=== PATIENT | male | born 1935 | race Caucasian/White ===

== ENCOUNTER 2017-02-24 13:35 | Inpatient (IN) | payer OTHER ==
--- NOTE | 2017-02-24 15:08 | C.PDOC ---
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 CROWDER FOR MULTIPLE FALLS, WEIGHT LOSS, AND ARRYTHMIA. PATIENT C/O "TOO MUCH PAIN" AND ADMITS TO FALLING DOWN TODAY. OTHERWISE, DENIES ANY OTHER COMPLAINTS. Time Seen by Provider: 02/24/17 14:48 Chief Complaint (Nursing): Weakness/Neurological Deficit History Per: Patient History/Exam Limitations: no limitations Onset/Duration Of Symptoms: Days Current Symptoms Are (Timing): Still Present Reports Recently: Treated By A Physician Recent travel outside of the [place]: No Past Medical History Reviewed: Historical Data, Nursing Documentation, Vital Signs Vital Signs: Last Vital Signs Temp 97.4 F L 02/24/17 13:57 Pulse 74 02/24/17 13:57 Resp 20 02/24/17 13:57 BP 94/62 L 02/24/17 13:57 Pulse Ox 99 02/24/17 15:46 - Medical History PMH: Anxiety, Arthritis, Asthma, Depression, HTN, Hypercholesterolemia, Hyperlipidemia Surgical History: Cholecystectomy Family History: States: Unknown Family Hx - Social History Hx Tobacco Use: No Hx Alcohol Use: No Hx Substance Use: No - Immunization History Hx Tetanus Toxoid Vaccination: No Hx Influenza Vaccination: Yes Hx Pneumococcal Vaccination: Yes Review Of Systems Except As Marked, All Systems Reviewed And Found Negative. Constitutional: Negative for: Fever, Chills Cardiovascular: Negative for: Chest Pain Respiratory: Negative for: Cough, Shortness of Breath, Other Gastrointestinal: Positive for: Abdominal Pain. Negative for: Vomiting Skin: Negative for: Rash Physical Exam - Physical Exam Appears: Non-toxic, No Acute Distress Skin: Warm, Dry Head: Atraumatic, Normacephalic Eye(s): bilateral: Normal Inspection, EOMI Oral Mucosa: Moist Neck: Normal ROM, Supple Chest: Symmetrical, No Deformity, Tenderness (INFERIOR, LATERAL CHEST WALL TENDERNESS), No Ecchymosis Cardiovascular: Rhythm Regular Respiratory: Normal Breath Sounds, No Accessory Muscle Use, No Rales, No Rhonchi , No Wheezing Gastrointestinal/Abdominal: Soft, No Tenderness, No Guarding, No Rebound, Other (ATRAUMATIC) Back: Normal Inspection, No Vertebral Tenderness, Other (ATRAUMATIC) Extremity: Normal ROM, Capillary Refill (< 2 SEC.) Neurological/Psych: Oriented x3, Normal Speech, Normal Cognition ED Course And Treatment - Laboratory Results Result Diagrams: 02/24/17 15:19 02/24/17 15:19 O2 Sat by Pulse Oximetry: 99 (RA) Pulse Ox Interpretation: Normal - Radiology CXR: Interpreted by Me CXR Interpretation: Yes: No Acute Disease Progress - Re-Evaluation Re-evaluation Note: 02/24/17 15:19 EKG, CXR, BLOODWORK, TORADOL Disposition Counseled Patient/Family Regarding: Studies Performed, Diagnosis - Disposition Disposition: HOSPITALIZED Disposition Time: 15:45 Condition: STABLE Instructions: Weakness (ED) Forms: [employer] (Slovak) - POA Present On Arrival: Falls Or Trauma - Clinical Impression Clinical Impression: Renal insufficiency, Dehydration, Hyponatremia, Weakness generalized - Scribe Statement The provider has reviewed the documentation as recorded by the Scribe sm All medical record entries made by the Scribe were at my direction and personally dictated by me. I have reviewed the chart and agree that the record accurately reflects my personal performance of the history, physical exam, medical decision making, and the department course for this patient. I have also personally directed, reviewed, and agree with the discharge instructions and disposition. Decision To Admit - Pt Status Changed To: Hospital Disposition Of: Inpatient - Admit Certification Admit to Inpatient:: After my assessment, the patient will require hospitalization for at least two midnights. This is because of the severity of symptoms shown, intensity of services needed, and/or the medical risk in this patient being treated as an outpatient. - InPatient: Physician Admission Certification: I certify that this patient requires 2 or more midnights of care for the following reason:: SEENOTE - . Bed Request Type: Regular Admitting Physician: Leon Crowder Patient Diagnosis: Renal insufficiency, Dehydration, Hyponatremia, Weakness generalized
[2017-02-24 15:22] LABS: BASO % 0.4 % (0.0-2.0); EOS # 0.1 K/uL (0.0-0.7); HEMATOCRIT 28.6 % (35.0-51.0); LYMPH % 18.2 % (20.0-40.0); MEAN CELL VOLUME 83.8 fL (80.0-94.0); MEAN CORPUSCULAR HEMOGLOBIN 27.7 pg (27.0-31.0); MONO # 0.6 K/uL (0.0-0.8); MONO % 11.3 % (0.0-10.0); NRBC % 0.1 % (0.0-2.0); RED CELL DISTRIBUTION WIDTH 15.8 % (11.5-14.5); WHITE BLOOD COUNT 5.5 K/uL (4.8-10.8)
[2017-02-24 15:36] LABS: CALCIUM 8.5 mg/dl (8.6-10.4)
--- NOTE | 2017-02-24 16:00 | RAD ---
PROCEDURE: CHEST RADIOGRAPH, 1 VIEW HISTORY: FALLS, WEAKNESS COMPARISON: 10/07/2014 FINDINGS: LUNGS: Clear. PLEURA: No pneumothorax or pleural fluid seen. CARDIOVASCULAR: Normal. OSSEOUS STRUCTURES: No significant abnormalities. VISUALIZED UPPER ABDOMEN: Normal. OTHER FINDINGS: None. IMPRESSION: No active disease.
[2017-02-24 16:45] LABS: RBC URINE < 1 /hpf (0-3); URINE BILIRUBIN NEGATIVE (NEGATIVE); URINE BLOOD NEGATIVE (NEGATIVE); URINE COLOR Yellow (YELLOW); URINE GLUCOSE (UA) NORMAL (Normal); URINE KETONE NEGATIVE (NEGATIVE); URINE LEUKOCYTE ESTERASE NEG Leu/uL (Negative); URINE PROTEIN NEGATIVE (NEGATIVE); URINE UROBILINOGEN NORMAL mg/dL (0.2-1.0); WBC URINE 1 /hpf (0-5)
[2017-02-25] MEDS ORDERED: Albuterol HFA 90 mcg/actuation (8 g) IH PRN (00:21)
[2017-02-25] MEDS ORDERED: Sodium Chloride 0.9% 1,000 ML IV SCH (00:45)
[2017-02-25] MEDS: Sodium Chloride 0.9% 1,000 ML IV SCH (01:41)
[2017-02-25 07:59] LABS: HEMATOCRIT 26.4 % (35.0-51.0); MEAN CELL VOLUME 83.8 fL (80.0-94.0); MEAN CORPUSCULAR HEMOGLOBIN 27.8 pg (27.0-31.0); MEAN CORPUSCULAR HGB CONC 33.2 g/dL (33.0-37.0); MEAN PLATELET VOLUME 6.9 fL (7.2-11.7); RED CELL DISTRIBUTION WIDTH 15.3 % (11.5-14.5); WHITE BLOOD COUNT 5.1 K/uL (4.8-10.8)
[2017-02-25 08:00] LABS: CHLORIDE 100 mmol/L (98-107)
[2017-02-25 08:01] LABS: SODIUM 129 mmol/L (132-148)
[2017-02-25 08:03] LABS: ALB/GLOB RATIO 0.9 (1.0-2.1); BILIRUBIN,TOTAL 0.5 mg/dL (0.2-1.3); CARBON DIOXIDE 20 mmol/L (22-30); CHOLESTEROL 120 mg/dL (0-199); GFR AFRICAN-AMERICAN > 60; TOTAL PROTEIN 6.1 g/dL (6.3-8.3)
[2017-02-25 08:04] LABS: ALKALINE PHOSPHATASE 69 U/L (38-126); ALT/SGPT 26 U/L (21-72); AST/SGOT 16 U/L (17-59); BLOOD UREA NITROGEN 45 mg/dL (9-20); CALCIUM 8.1 mg/dl (8.6-10.4); GLUCOSE,RANDOM 83 mg/dL (75-110)
--- NOTE | 2017-02-25 09:46 | CT ---
PROCEDURE: CT HEAD WITHOUT CONTRAST. HISTORY: Frequent falls COMPARISON: None available. TECHNIQUE: Axial computed tomography images were obtained through the head/brain without intravenous contrast. Radiation dose: Total exam DLP = 915.9 mGy-cm. This CT exam was performed using one or more of the following dose reduction techniques: Automated exposure control, adjustment of the mA and/or kV according to patient size, and/or use of iterative reconstruction technique. FINDINGS: HEMORRHAGE: No intracranial hemorrhage. BRAIN: No mass effect or edema. There is grdp-ec-rmntmnia atrophy. Mild white matter changes are also noted suggestive but nonspecific for chronic microvascular ischemic disease. VENTRICLES: Unremarkable. No hydrocephalus. CALVARIUM: Unremarkable. PARANASAL SINUSES: Unremarkable as visualized. No significant inflammatory changes. MASTOID AIR CELLS: Unremarkable as visualized. No inflammatory changes. OTHER FINDINGS: None. IMPRESSION: No evidence of acute intracranial hemorrhage intracranial collection mass effect or midline shift. Yqht-hd-[id number] atrophy and mild chronic microvascular ischemic disease.
[2017-02-25] MEDS: Naproxen 275 mg Tab PO SCH ×2 (10:59→18:26)
[2017-02-25] MEDS: Pantoprazole 40 mg EC Tab PO SCH (10:59)
[2017-02-25] MEDS: Rosuvastatin Calcium 2.5 mg Tab PO SCH (22:55)
--- NOTE | 2017-02-25 23:04 | CON ---
REASON FOR CONSULTATION: Recurrent falls. HISTORY OF PRESENT ILLNESS: The patient is an 81-year-old male who was brought in because of multiple falls as well as weight loss. The patient was recently hospitalized at [facility] but does not recall what was exactly done in terms of procedures. The patient denies any history of heart attack. SOCIAL HISTORY: The patient lives at home and he is being taken care of by his son. MEDICATIONS: Naproxen 275 mg twice a day, Bystolic 5 mg once a day, Carafate 1 g t.i.d., Desyrel 50 mg at bedtime, Crestor 2.5 mg once a day, aspirin 81 mg once a day, Protonix 40 mg p.o. once day, normal saline 80 mL an hour, Zestril 5 mg once a day, Zoloft 25 mg once a day. REVIEW OF SYSTEMS: No reported intracardiac arrhythmia on the monitor. No reported seizures. No reported fever or chills. PHYSICAL EXAMINATION GENERAL: The patient is an elderly male who does not appear to be in any acute distress. VITAL SIGNS: Blood pressure 109/68, heart rate 84, temperature 98, respirations 20. HEENT: Normocephalic. Capac conjunctivae. CHEST: Poor inspiratory effort. HEART: S1 and S2 regular. ABDOMEN: Soft. EXTREMITIES: No edema. LABORATORY DATA: SMA-7; sodium 129, potassium 4, chloride 100, CO2 of 20, glucose 83, BUN 25, creatinine 1.3, BUN yesterday was 68. Hemoglobin and hematocrit 8.8 and 26.4. White count and platelet count are within normal limit. EKG revealed sinus tachycardia with a rate of 104, LVH with repolarization changes. Echocardiographic study performed in 2013, some 3 years ago, reported as significantly limited, mitral annular calcification with calcified leaflets. Moderate to severe aortic stenosis. Right ventricular systolic pressure estimated at 50 mmHg to [address] scan without contrast; no evidence of acute intracranial hemorrhage. Mild to moderate atrophy and mild microvascular ischemic changes. ASSESSMENT: 1. Recurrent falls. 2. Dehydration and prerenal azotemia. 3. Aortic stenosis. 4. Moderate pulmonary hypertension. 5. Systemic hypertension. 6. Hyponatremia. RECOMMENDATIONS: Continue current Bystolic at 5 mg once a day, Crestor 2.5 mg once a day, aspirin 81 mg once a day, normal saline at 80 mL an hour, Zestril 5 mg once a day. Obtain again echocardiographic study and obtain medical records from the recent admission and [facility], Po Landon MD
[2017-02-25] MEDS ORDERED: Aluminum Hydroxide/Magnesium Hydroxide Susp (30 mL) PO ONE (23:06)
[2017-02-26] MEDS: Sodium Chloride 0.9% 1,000 ML IV SCH (04:00)
[2017-02-26 08:00] VITALS: RESP 20
[2017-02-26 08:13] LABS: HEMATOCRIT 26.8 % (35.0-51.0); MEAN CELL VOLUME 83.3 fL (80.0-94.0); MEAN CORPUSCULAR HEMOGLOBIN 28.5 pg (27.0-31.0); MEAN CORPUSCULAR HGB CONC 34.2 g/dL (33.0-37.0); MEAN PLATELET VOLUME 6.6 fL (7.2-11.7); RED CELL DISTRIBUTION WIDTH 15.2 % (11.5-14.5); WHITE BLOOD COUNT 4.8 K/uL (4.8-10.8)
[2017-02-26 08:34] LABS: CHLORIDE 102 mmol/L (98-107); POTASSIUM 4.3 mmol/L (3.6-5.2); SODIUM 131 mmol/L (132-148)
[2017-02-26 08:37] LABS: BLOOD UREA NITROGEN 30 mg/dL (9-20); CARBON DIOXIDE 22 mmol/L (22-30); GFR AFRICAN-AMERICAN > 60
[2017-02-26 08:38] LABS: CALCIUM 8.4 mg/dl (8.6-10.4); GLUCOSE,RANDOM 79 mg/dL (75-110)
--- NOTE | 2017-02-26 09:17 | HP ---
HISTORY OF PRESENT ILLNESS: This patient is an 81 years old male with history of CAD, hypertension, arthritis, neuropathy, asthma, depression, and hyperlipidemia. The patient was sent to the emergency room because, as per his son, the patient has history of multiple falls and was very weak, and also the patient was complaining of dizziness, so I have advised the son to bring the patient to the emergency room for evaluation and the patient was admitted to the emergency room. ALLERGIES: THE PATIENT HAS NO KNOWN ALLERGY. PAST MEDICAL HISTORY: As above mentioned, history of arthritis, asthma, depression, hypertension, hyperlipidemia, and also CAD. SOCIAL HISTORY: The patient lives alone. FAMILY HISTORY: No inherited disease. REVIEW OF SYSTEMS: RESPIRATORY: The patient has been having some shortness of breath on exertion. CARDIOVASCULAR: Positive for palpitation. GASTROINTESTINAL: The patient is complaining of anorexia. GENITOURINARY: Nocturia. NEUROLOGIC: The patient is complaining of dizziness. PSYCHIATRIC: The patient is complaining of feeling depressed at times. PHYSICAL EXAMINATION: GENERAL: The patient is alert and awake, but answers to simple question. VITAL SIGNS: Blood pressure on admission 122/61, pulse 66, respirations 18, and temperature 97.1. HEENT: Head is normocephalic. Eyes is somewhat sinking. NECK: Supple. LUNGS: Clear. HEART: Regular rate and rhythm. Positive murmur and some extrasystole. ABDOMEN: Soft and nontender. No palpable mass. EXTREMITIES: No edema. The lower extremity shows some decrease of muscle mass. LABORATORY DATA: The patient has some blood tests done. His WBC is 5.5, hemoglobin 9.5, hematocrit 28.6, and platelet is 341. Chemistry: Sodium 129, potassium is 4, chloride 96, bicarb is 19, BUN is 58, creatinine 1.6 and calcium is 8.5. Albumin now at 2.9, triglyceride is 37, cholesterol 120, LDL 63, and HDL 25. The patient had CT of the head, showed no evidence of subacute intracranial hemorrhage and intracranial "mass effect or midline shift." Mild to moderate atrophy and mild chronic microvascular ischemic disease. IMPRESSION: The patient is admitted with diagnoses of: 1. Dizziness. 2. Renal failure, acute. 3. Multiple falls. 4. Coronary artery disease. 5. Arthritis. 6. Depression. 7. Also, the patient has tachyarrhythmia and he was found to be tachycardic. The patient's case was reviewed with Chasity Moon, the nurse practitioner, and also the patient is ordered a cardiology consult with Dr. Landon. So, blood pressure will be ordered tomorrow and we are going to continue to follow this patient. Leon Crowder MD
[2017-02-26] MEDS: Pantoprazole 40 mg EC Tab PO SCH (10:11)
[2017-02-26] MEDS: Naproxen 275 mg Tab PO SCH ×2 (10:12→18:00)
--- NOTE | 2017-02-26 11:51 | VASCLAB ---
PROCEDURE: HISTORY: Syncope COMPARISON: No previous carotid duplex exam. TECHNIQUE: Grayscale and duplex Doppler evaluation of the cervical carotid and vertebral arteries were performed. The common carotid, carotid bifurcations and cervical Internal Carotid Artery (ICA) and proximal External Carotid Artery (ECA) were evaluated. The vertebral arteries were evaluated for gross patency and flow direction. Report prepared by MORGAN Katz FINDINGS: RIGHT CAROTID ARTERIES: 1. Common Carotid Artery: No significant focal plaque formation of the right common carotid artery. Maximum Peak Systolic velocity: 118 cm/sec: End-diastolic velocity 14 cm/sec. 2. Carotid Bifurcation: Calcific plaque formation. Maximum Peak Systolic velocity: 46 cm/sec: End-diastolic velocity 11 cm/sec. 3. Internal Carotid Artery: Plaque description: Calcific 3.1. Proximal Segment: Peak systolic velocity 76 cm/sec: End-diastolic velocity 22 cm/sec - % stenosis 0-15% 3.2. Middle Segment: Peak systolic velocity 81 cm/sec: End-diastolic velocity 24 cm/sec - % stenosis 0-15% 3.3. Distal Segment: Peak systolic velocity 80 cm/sec: End-diastolic velocity 26 cm/sec - % stenosis 0-15% 4. External Carotid Artery: No significant focal plaque formation. Peak systolic velocity 78 cm/sec 5. ICA/CCA Ratio: 1.6 LEFT CAROTID ARTERIES: 1. Common Carotid Artery: No significant focal plaque formation of the left common carotid artery. Maximum Peak Systolic velocity: 112 cm/sec: End-diastolic velocity 30 cm/sec. 2. Carotid Bifurcation: Calcific plaque formation. Maximum Peak Systolic velocity: 51 cm/sec: End-diastolic velocity 18 cm/sec. 3. Internal Carotid Artery: Plaque description: Calcific 3.1. Proximal Segment: Peak systolic velocity 96 cm/sec: End-diastolic velocity 28 cm/sec - % stenosis 0-15% 3.2. Middle Segment: Peak systolic velocity 140 cm/sec: End-diastolic velocity 30 cm/sec - % stenosis 0-15% 3.3. Distal Segment: Peak systolic velocity 85 cm/sec: End-diastolic velocity 28 cm/sec - % stenosis 0-15% 4. External Carotid Artery: No significant focal plaque formation. Peak systolic velocity 58 cm/sec 5. ICA/CCA Ratio: 1.9 VERTEBRAL ARTERIES: 1. Right Vertebral Artery: The right vertebral artery flow direction is antegrade. 2. Left Vertebral Artery: The left vertebral artery flow direction is antegrade. OTHER FINDINGS: 1. Right Brachial Blood pressure: 132 mmHg. 2. Left Brachial Blood pressure: 140 mmHg. IMPRESSION: RIGHT: Duplex scan does not suggest hemodynamically significant stenosis of the right extracranial carotid arteries. LEFT: Duplex scan does not suggest hemodynamically significant stenosis of the left extracranial carotid arteries.
--- NOTE | 2017-02-26 17:41 | CARD ---
APPROVED REPORT EXAM: Two-dimensional and M-mode echocardiogram with Doppler and color Doppler. Other Information Quality : GoodRhythm : NSR INDICATION Dyspnea CAD Chest Pain 2D DIMENSIONS IVSd1.1 (0.7-1.1cm)LVDd4.2 (3.9-5.9cm) LVOT Diameter1.9 (1.8-2.4cm)PWd1.1 (0.7-1.1cm) LVDs2.5 (2.5-4.0cm)FS (%) 40.4 % LVEF (%)71.5 (>50%) M-Mode DIMENSIONS Left Atrium (MM)4.33 (2.5-4.0cm)IVSd0.96 (0.7-1.1cm) Aortic Root3.15 (2.2-3.7cm)LVDd4.94 (4.0-5.6cm) Aortic Cusp Exc.1.28 (1.5-2.0cm)PWd0.96 (0.7-1.1cm) FS (%) 43 %LVDs2.80 (2.0-3.8cm) Aortic Valve AoV Peak Cajbotkw100.0cm/sAoV VTI75.6cmAO Peak GR.66mmHg LVOT Peak Oumcouuj552.8cm/sLVOT VTI32.52cmAO Mean GR.43mmHg YARA (VMAX)1.34ih9AWD (VTI)1.47mm4ZJ P 1/2 Jzlx282qp Mitral Valve MV E Xivsnkjt730.1cm/sMV A Aktrllzl153.3cm/sE/A ratio0.7 TDI E/Lateral E'0.0E/Medial E'0.0 Tricuspid Valve TR Peak Rwnqsxrm823ni/sTR Peak Gr.58mmHg LEFT VENTRICLE The left ventricle is normal size. There is mild to moderate concentric left ventricular hypertrophy. The left ventricular function is normal. The left ventricular ejection fraction is within the normal range. There is normal LV segmental wall motion. Transmitral Doppler flow pattern is Grade I-abnormal relaxation pattern. RIGHT VENTRICLE The right ventricle is normal size. There is normal right ventricular wall thickness. The right ventricular systolic function is normal. ATRIA The left atrium is mildly dilated. The right atrium is mildly dilated. AORTIC VALVE The aortic valve is mildly to moderately calcified. There is mild aortic regurgitation. There is moderate to severe valvular aortic stenosis. MITRAL VALVE Mitral annular calcification is moderate. Mitral regurgitation is mild. TRICUSPID VALVE There is moderate tricuspid regurgitation. There is moderate pulmonary hypertension. <Conclusion> The left ventricle is normal size. There is mild to moderate concentric left ventricular hypertrophy. The left ventricular function is normal. The left ventricular ejection fraction is within the normal range. There is normal LV segmental wall motion. Transmitral Doppler flow pattern is Grade I-abnormal relaxation pattern. The aortic valve is mildly to moderately calcified. There is moderate to severe valvular aortic stenosis. There is mild aortic regurgitation. There is moderate tricuspid regurgitation. There is moderate pulmonary hypertension.
--- NOTE | 2017-02-26 17:50 | PN ---
SUBJECTIVE: The patient denies dizziness, headache or chest pain. PHYSICAL EXAMINATION: VITAL SIGNS: Blood pressure 122/70, heart rate 86, temperature 97.5, respiration 20. HEENT: [place] conjunctivae. CHEST: Clear. HEART: S1and S2, regular. Grade 2/6 ejection systolic murmur over left sternal border. ABDOMEN: Soft. EXTREMITIES: No edema. LABORATORY DATA: Hemoglobin and hematocrit 9.2 and 26.8. White count and platelet count are within normal limits. SMA-7 showed sodium 131, potassium 4.2, chloride 102, CO2 of 22, glucose is 79, BUN 30, creatinine 1.0. Carotid Doppler does not suggest significant stenosis of the bilaterally. ASSESSMENT: 1. Multiple falls. 2. Moderate pulmonary hypertension. 3. Moderate to severe aortic stenosis by an echo done in December of 2013. 4. Hyponatremia. 5. Dehydration and prerenal azotemia, which is currently improving. RECOMMENDATIONS: Continue current Bystolic 5 mg daily, Crestor 2.5 mg once a day, aspirin 81 mg once a day, Vistaril 25 mg once a day. I get order an echocardiographic study to reevaluate the aortic stenosis and the severity of pulmonary hypertension. Po Landon MD
[2017-02-26] MEDS: Rosuvastatin Calcium 2.5 mg Tab PO SCH (21:41)
--- NOTE | 2017-02-26 23:21 | PN ---
DATE: SUBJECTIVE: Today, the patient is more alert and awake. He is still feeling week. Denies any shortness of breath. No chest pain. No palpitations. PHYSICAL EXAMINATION: VITAL SIGNS: The patient has blood pressure 98/58, pulse 82, respirations 20, temperature 98.3. HEENT: Head is normocephalic. Eyes are sunk to the orbit. NECK: Supple. LUNGS: Clear. HEART: Regular rate and rhythm. Positive murmur. ABDOMEN: Soft. Mild epigastric tenderness. EXTREMITIES: There is no edema, but there is wasting muscle of the calves. NEUROLOGIC: The patient has unsteady gait. LABORATORY DATA: The patient had some lab tests done. WBC is 4.8, hemoglobin 9.2, hematocrit 26.8, and platelet is 291. Chemistries: Sodium is 131, potassium 4.3, chloride 102, bicarb is 22, BUN 30, creatinine is 1, calcium 8.4, glucose 79. PLAN: The plan is to have an echocardiogram, which is ordered and we will start with physical therapy. The case was reviewed and discussed with Chasity Moon, the nurse practitioner. Labs will be ordered for tomorrow and physical therapy is starting. Leon Crowder MD
[2017-02-27] MEDS: Naproxen 275 mg Tab PO SCH ×2 (09:58→17:13)
[2017-02-27] MEDS: Pantoprazole 40 mg EC Tab PO SCH (09:59)
[2017-02-27 11:42] LABS: BASO % 0.3 % (0.0-2.0); EOS # 0.1 K/uL (0.0-0.7); EOS % 1.4 % (0.0-4.0); HEMATOCRIT 29.3 % (35.0-51.0); LYMPH # 1.5 K/uL (1.0-4.3); LYMPH % 36.9 % (20.0-40.0); MEAN CELL VOLUME 84.6 fL (80.0-94.0); MEAN CORPUSCULAR HEMOGLOBIN 27.4 pg (27.0-31.0); MEAN CORPUSCULAR HGB CONC 32.4 g/dL (33.0-37.0); MEAN PLATELET VOLUME 6.8 fL (7.2-11.7); MONO # 0.4 K/uL (0.0-0.8); MONO % 9.6 % (0.0-10.0); NRBC % 0.1 % (0.0-2.0); WHITE BLOOD COUNT 4.1 K/uL (4.8-10.8)
[2017-02-27 11:55] LABS: CHLORIDE 105 mmol/L (98-107); POTASSIUM 4.1 mmol/L (3.6-5.2); SODIUM 135 mmol/L (132-148)
[2017-02-27 11:58] LABS: CARBON DIOXIDE 22 mmol/L (22-30); GFR AFRICAN-AMERICAN > 60
[2017-02-27 11:59] LABS: BLOOD UREA NITROGEN 19 mg/dL (9-20); CALCIUM 8.3 mg/dl (8.6-10.4); GLUCOSE,RANDOM 110 mg/dL (75-110)
[2017-02-27] MEDS: Sodium Chloride 0.9% 1,000 ML IV SCH ×3 (12:20→22:44)
[2017-02-27 15:55] VITALS: O2SAT 99
--- NOTE | 2017-02-27 20:43 | PN ---
DATE: SUBJECTIVE: The patient denies any dizziness or palpitation. PHYSICAL EXAMINATION: VITAL SIGNS: Blood pressure 116/68, heart rate 78, temperature 98.1 and respirations 20. HEENT: Pale conjunctivae. CHEST: Clear. HEART: Sounds regular. Grade III/ ejection systolic murmur over left sternal border. ABDOMEN: Soft. EXTREMITIES: Trace edema. LABORATORY DATA: Hemoglobin and hematocrit 9.5 and 29.3, white count 4.1 and platelet count 330,000. Today's Chem-7 is within normal limits. Calcium is below normal at 8.3. Echocardiographic study report revealed calcific aortic valve was wugw-ie-tqgfzsdd valvular aortic stenosis, mild aortic insufficiency, moderate tricuspid insufficiency with moderate pulmonary hypertension. ASSESSMENT: 1. Recurrent falls. 2. Dlsmzfer-fz-btplnh aortic stenosis with mild aortic insufficiency. 3. Moderate pulmonary hypertension. 4. Anemia. RECOMMENDATIONS: Continue Bystolic at 5 mg once a day, Crestor at 2.5 mg once a day, aspirin 81 mg once a day, Zestril 5 mg once a day. Further intervention on the aortic valve will be discussed with the patient's primary physician, as well as family. Po Landon MD
[2017-02-27] MEDS: Rosuvastatin Calcium 2.5 mg Tab PO SCH (21:12)
--- NOTE | 2017-02-27 21:12 | PN ---
SUBJECTIVE: Today the patient is more alert and awake, seen this morning, sitting on the chair and denied any shortness of breath, no chest pain, but still complaining of generalized weakness. PHYSICAL EXAMINATION VITAL SIGNS: The patient has blood pressure of 116/68, pulse 78, respiration is 20, temperature 98.1. HEENT: Head is normocephalic. NECK: Supple. LUNGS: Clear. HEART: Regular rate and rhythm. Positive murmur. ABDOMEN: Soft, nontender, no palpable mass. EXTREMITIES: There is no edema but there is wasting of the muscle of the lower extremities. The patient had today echocardiogram that showed that left ventricle is of normal size and has good ejection fraction. The aortic emily is mildly to moderately calcified. There is moderate to severe valvular aortic stenosis and there is mid aortic regurgitation. There is moderate tricuspid regurgitation. PLAN: Continue medical treatment, no question for intervention at this point. We are going to send the patient to rehab for physical therapy. The case was reviewed and discussed with Chasity Moon, the nurse practitioner. Leon Crowder MD
[2017-02-28 00:13] VITALS: TEMP 97.9
[2017-02-28] MEDS: Pantoprazole 40 mg EC Tab PO SCH (10:05)
[2017-02-28] MEDS: Naproxen 275 mg Tab PO SCH (10:06)
[2017-02-28] MEDS ORDERED: Aluminum Hydroxide/Magnesium Hydroxide Susp (30 mL) PO ONE (11:30)
[2017-02-28 11:39] LABS: HEMATOCRIT 28.6 % (35.0-51.0); MEAN CELL VOLUME 84.7 fL (80.0-94.0); MEAN CORPUSCULAR HEMOGLOBIN 27.1 pg (27.0-31.0); MEAN PLATELET VOLUME 6.5 fL (7.2-11.7); RED CELL DISTRIBUTION WIDTH 15.3 % (11.5-14.5); WHITE BLOOD COUNT 3.7 K/uL (4.8-10.8)
--- NOTE | 2017-02-28 11:45 | CP.PCM.PN ---
Subjective - Date & Time of Evaluation Date of Evaluation: 02/28/17 Time of Evaluation: 11:44 - Subjective Subjective: PT SEEN WITH DR. DEAN DURING ROUNDS. HAD ONE EPISODE OF VOMITUS (SCANT AMOUNT) THIS MORNING AFTER BREAKFAST--PER PT HE "ATE TOO MUCH." C/O GEN ABD PAIN WITH MILD TENDERNESS TO RUQ AND EPIGASTRIC AREA. ABD U/S ORDERED (SEE OFFICIAL RESULTS); LABS ORDERED (SEE RESULTS). SYMPTOMS RESOLVED AFTER ZOFRAN AND MAALOX. QUALITY ASSURANCE/R&D LAB TECHNICIAN DISCUSSED WITH DR. BOND, PT CLEARED FOR D/C; DR. BOND LEFT MESSAGE FOR FAMILY MEMBER IN REGARDS TO AND IF THEY WOULD LIKE ANY PROCEDURES. PER DR. DEAN PT TO NOT HAVE ANY CARDIAC INVASIVE PROCEDURES DONE. PT D/C TO LOCATED WITHIN [facility] TODAY. SW TO ARRANGE TRANSPORTATION;. Objective - Vital Signs/Intake and Output Vital Signs (last 24 hours): Temp Pulse Resp BP Pulse Ox 97.9 F 84 20 138/64 99 02/27/17 23:09 02/28/17 10:04 02/27/17 23:09 02/28/17 10:04 02/27/17 23:09 - Medications Medications: Current Medications Albuterol (Ventolin Hfa 90 Mcg/Actuation (8 G)) 1 puff IH PRN PRN PRN Reason: Wheezing Aspirin (Ecotrin) 81 mg PO DAILY [facility] Last Admin: 02/28/17 10:12 Dose: 81 mg Lisinopril (Zestril) 5 mg PO DAILY [facility] Last Admin: 02/28/17 10:05 Dose: 5 mg Naproxen (Anaprox) 275 mg PO BID [facility] Last Admin: 02/28/17 10:06 Dose: 275 mg Nebivolol (Bystolic) 5 mg PO DAILY [facility] Last Admin: 02/28/17 10:06 Dose: 5 mg Ondansetron HCl (Zofran Inj) 4 mg IVP Q6 PRN PRN Reason: Nausea/Vomiting Pantoprazole Sodium (Protonix Ec Tab) 40 mg PO DAILY [facility] Last Admin: 02/28/17 10:05 Dose: 40 mg Rosuvastatin Calcium (Crestor) 2.5 mg PO HS [facility] Last Admin: 02/27/17 21:12 Dose: 2.5 mg Sertraline HCl (Zoloft) 25 mg PO DAILY [facility] Last Admin: 02/28/17 10:55 Dose: 25 mg Sucralfate (Carafate Tab) 1 gm PO ACTID [facility] Last Admin: 02/28/17 10:05 Dose: 1 gm Trazodone HCl (Desyrel) 50 mg PO HS [facility] Last Admin: 02/27/17 21:12 Dose: 50 mg - Labs Labs: 02/27/17 11:30 02/27/17 11:30
[2017-02-28 11:53] LABS: CHLORIDE 105 mmol/L (98-107); SODIUM 137 mmol/L (132-148)
[2017-02-28 11:54] LABS: POTASSIUM 4.4 mmol/L (3.6-5.2)
[2017-02-28 11:56] LABS: GFR AFRICAN-AMERICAN > 60
[2017-02-28 11:57] LABS: BLOOD UREA NITROGEN 18 mg/dL (9-20); CALCIUM 8.5 mg/dl (8.6-10.4); CARBON DIOXIDE 22 mmol/L (22-30); GLUCOSE,RANDOM 109 mg/dL (75-110)
[2017-02-28 12:48] LABS: AMYLASE 113 U/L (30-110)
--- NOTE | 2017-02-28 14:04 | US ---
HISTORY: RUQ pain, vomiting, nausea; r/o cholelithiasis COMPARISON: None available. TECHNIQUE: Sonographic evaluation of the abdomen. FINDINGS: LIVER: Measures 13.9 cm in sagittal dimension. Echogenic liver may be seen in setting of hepatic parenchymal disease or fatty infiltration. No focal hepatic mass identified. The main portal vein appears patent with normal directional flow. No intrahepatic bile duct dilatation. GALLBLADDER: Cholecystectomy. COMMON BILE DUCT: Measures 9 mm. PANCREAS: Not well visualized. RIGHT KIDNEY: Measures 9.8 x 4.4 x 4.8 cm. No obstructing calculus or hydronephrosis identified. LEFT KIDNEY: Measures 10.3 x 5.6 x 5.7 cm. No obstructing calculus or hydronephrosis identified. 3.4 x 2.6 x 3.3 cm probable left renal cyst. SPLEEN: Measures approximately 9.2 cm. AORTA: Limited views appear unremarkable. IVC: Limited views appear unremarkable. OTHER FINDINGS: None. IMPRESSION: Echogenic liver may be seen in setting of hepatic parenchymal disease or fatty infiltration. Dilated common bile duct in the setting of cholecystectomy. 3.4 cm probable left renal cyst.
--- NOTE | 2017-02-28 15:45 | CARD ---
APPROVED REPORT EKG Measurement Heart [id number] <Conclusion> Sinus tachycardia Left ventricular hypertrophy with repolarization abnormality Abnormal ECG
[2017-02-28 17:47] VITALS: BP 113/68; PULSE 78
--- NOTE | 2017-02-28 18:01 | PN ---
DATE: 02/28/2017 SUBJECTIVE: The patient did vomit today. He denies any dizziness. PHYSICAL EXAMINATION: VITAL SIGNS: Blood pressure 138/64, heart rate 84, temperature 97.9, respirations 20. HEENT: Pale conjunctivae. CHEST: Clear. HEART: Heart sounds regular. Grade 3/6 ejection systolic murmur over left sternal border. ABDOMEN: Soft. EXTREMITIES: No edema. LABORATORY DATA: Hemoglobin and hematocrit 9.1 and 28.6, white count 3.7, platelet count 303,000. SMA 7 today is within normal limits. Calcium is below normal at 8.5. ASSESSMENT: 1. Recurrent falls. 2. Aortic stenosis. 3. Pulmonary hypertension. 4. Anemia. 5. Vomiting today. RECOMMENDATIONS: I did review the amylase and lipase levels. Lipase level is within normal limit and amylase level is slightly elevated at 113 and pancreatitis is unlikely underlying etiology for the patient's vomiting. Discontinue naproxen for now. Continue Bystolic 5 mg once a day, Crestor 2.5 mg once a day, hold aspirin, continue Zestril 5 mg once a day, Zofran was started 4 mg intravenously q. 6 hours p.r.n. I did leave my cell phone number with the patient's son to discuss the possibility of having cardiac catheterization with possible intervention on the aortic stenosis. Po Landon MD
--- NOTE | 2017-03-01 00:49 | PN ---
DATE: SUBJECTIVE: Today, the patient is more alert and awake. Denies any shortness of breath, but however, the patient is complaining of some abdominal pain and also pain in the right upper quadrant. The patient has some, as I mentioned, pain to the lower quadrant and also complaining of some generalized weakness. PHYSICAL EXAMINATION VITAL SIGNS: Blood pressure of 113/68, pulse 78, respirations 20, temperature 97.9. NECK: Supple. No JVD. LUNGS: Clear. HEART: Regular rate and rhythm, positive murmur. ABDOMEN: Soft, nontender, no palpable mass. EXTREMITIES: There is no edema, but there is a wasting of the muscle of the lower extremities. LABORATORY DATA: The patient's blood work shows WBC 3.7, hemoglobin 9.1, hematocrit 28.6, and platelets 303. Chemistry showed amylase is 113, lipase 115 is normal, calcium 8.5, sodium 137, potassium 4.4, chloride 105, bicarb is 22, BUN 18, creatinine 0.9 and glucose 109. Also, the patient has abdominal ultrasound that showed echogenic liver that is seen in setting of hepatic parenchymal disease of fatty infiltration. There is dilated common bile duct in the setting of cholecystectomy, 3.4 cm without a cyst. PLAN: The plan is that we are going to discharge this patient and send this patient to rehab at . The case was discussed with Nenita Douglass, nurse practitioner. Leon Crowder MD
--- NOTE | 2017-03-06 16:05 | DS ---
HISTORY OF PRESENT ILLNESS: This patient is an 81-year- old female with history of hypertension, arthritis, neuropathy, asthma, depression and hyperlipidemia. Patient was advised to come to the emergency room because the patient was getting repeated falls to the point that patient falls easily and was informed by the patient's son, so a decision was made for the patient to be admitted. Physical examination was within normal limits except that the patient had unsteady gait and also has decrease of . Also, the patient has some back pain, which increased with the flexion and extension. Patient was seen by Dr. Landon, the etch operator semiconductor wafers and the patient had done. EKG was done. CT of the head was also done, which showed just microvascular disease and no intracranial hemorrhage. Patient then was put on physical therapy. The patient is going to do physical therapy on his own, suggested that the patient would benefit of an inpatient PT; therefore, patient will be transferred to [facility] for continuing of physical therapy. Leon Crowder MD
== END 2017-02-28 20:28 | DRG 683 ==
LOC: C.ER 13:35 → C.9E 15:46 → C.5T 21:43
PROVIDERS: ADMIT Specialist; ATTEND Specialist
DX: N17.9 Acute kidney failure, unspecified (principal); E87.1 Hypo-osmolality and hyponatremia; I27.2 Other secondary pulmonary hypertension; G62.9 Polyneuropathy, unspecified; E86.0 Dehydration; I35.2 Nonrheumatic aortic (valve) stenosis with insufficiency; R29.6 Repeated falls; I10 Essential (primary) hypertension; M19.90 Unspecified osteoarthritis, unspecified site; J45.909 Unspecified asthma, uncomplicated; I25.10 Atherosclerotic heart disease of native coronary artery without angina pectoris; F32.9 Major depressive disorder, single episode, unspecified; R00.0 Tachycardia, unspecified; D64.9 Anemia, unspecified; E78.00 Pure hypercholesterolemia, unspecified; Z91.81 History of falling

== ENCOUNTER 2017-03-28 22:04 | Inpatient (IN) | payer MEDICARE, OTHER ==
--- NOTE | 2017-03-28 22:38 | C.PDOC ---
History Of Present Illness 81yo male, [facility] of abdominal pain and vomiting, present for the past couple days. He reports associated nausea and vomiting but there is no active vomiting present in the ED. He denies any associated fever or chills. No other medical complaints. Time Seen by Provider: 03/28/17 22:37 Chief Complaint (Nursing): Abdominal Pain History Per: Patient History/Exam Limitations: no limitations Onset/Duration Of Symptoms: Days Current Symptoms Are (Timing): Still Present Location Of Pain/Discomfort: Diffuse Associated Symptoms: Nausea, Vomiting. denies: Fever, Chills Past Medical History Reviewed: Historical Data, Nursing Documentation, Vital Signs Vital Signs: Last Vital Signs Temp 98.2 F 03/28/17 22:22 Pulse 75 03/28/17 22:22 Resp 20 03/28/17 22:22 BP 149/72 03/28/17 22:22 Pulse Ox 100 03/28/17 22:53 - Medical History PMH: Anxiety, Arthritis, Asthma, Depression, HTN, Hypercholesterolemia, Hyperlipidemia Denies: Chronic Kidney Disease Surgical History: Cholecystectomy Family History: States: Unknown Family Hx - Social History Hx Tobacco Use: No Hx Alcohol Use: No Hx Substance Use: No - Immunization History Hx Tetanus Toxoid Vaccination: No Hx Influenza Vaccination: Yes Hx Pneumococcal Vaccination: Yes Review Of Systems Constitutional: Negative for: Fever, Chills Eyes: Negative for: Redness Cardiovascular: Negative for: Chest Pain Respiratory: Negative for: Shortness of Breath Gastrointestinal: Positive for: Nausea, Vomiting, Abdominal Pain Genitourinary: Negative for: Dysuria Musculoskeletal: Negative for: Back Pain Skin: Negative for: Rash Neurological: Negative for: Weakness Psych: Negative for: Anxiety Physical Exam - Physical Exam Appears: Non-toxic, No Acute Distress Skin: Warm, Dry Head: Normacephalic Eye(s): bilateral: Normal Inspection Oral Mucosa: Dry Neck: Supple Chest: Symmetrical Cardiovascular: Rhythm Regular Respiratory: No Decreased Breath Sounds, No Accessory Muscle Use Gastrointestinal/Abdominal: Bowel Sounds, Soft, Tenderness (diffuse abdominal tenderness), No Guarding, No Rebound Back: No CVA Tenderness Extremity: No Deformity, No Swelling Extremity: Bilateral: Atraumatic, Normal Color And Temperature Pulses: Left Dorsalis Pedis: Normal, Right Dorsalis Pedis: Normal Neurological/Psych: Oriented x3, Normal Speech, Normal Cognition Gait: Steady ED Course And Treatment - Laboratory Results Result Diagrams: 03/28/17 22:43 03/28/17 22:43 O2 Sat by Pulse Oximetry: 100 (RA) Pulse Ox Interpretation: Normal Disposition Discussed With DrSherrill: Leon Crowder Comment: accepted the pt on his service and took over the care at 11:45PM Doctor Will See Patient In The: Hospital Counseled Patient/Family Regarding: Studies Performed, Diagnosis - Disposition Disposition: HOSPITALIZED Disposition Time: 22:38 Condition: FAIR Forms: [facility] (Sinhala) - POA Present On Arrival: None - Clinical Impression Clinical Impression: Abdominal pain, Nausea, Vomiting, Anemia, Dehydration - Scribe Statement The provider has reviewed the documentation as recorded by the Dustin Kwan Provider Attestation: All medical record entries made by the Dustin were at my direction and personally dictated by me. I have reviewed the chart and agree that the record accurately reflects my personal performance of the history, physical exam, medical decision making, and the department course for this patient. I have also personally directed, reviewed, and agree with the discharge instructions and disposition. Decision To Admit - Pt Status Changed To: Hospital Disposition Of: Inpatient - Admit Certification Admit to Inpatient:: After my assessment, the patient will require hospitalization for at least two midnights. This is because of the severity of symptoms shown, intensity of services needed, and/or the medical risk in this patient being treated as an outpatient. - InPatient: Physician Admission Certification:: After my assessment, the patient will require hospitalization for at least two midnights. This is because of the severity of symptoms shown, intensity of services needed, and/or the medical risk in this patient being treated as an outpatient. - . Bed Request Type: Regular Admitting Physician: Leon Crowder Patient Diagnosis: Abdominal pain, Nausea, Vomiting, Anemia, Dehydration
[2017-03-28] MEDS ORDERED: Sodium Chloride 0.9% 1,000 ML IV ONE (22:39)
[2017-03-28 22:54] LABS: BASO % 0.2 % (0.0-2.0); EOS # 0.1 K/uL (0.0-0.7); HEMATOCRIT 25.9 % (35.0-51.0); LYMPH # 2.1 K/uL (1.0-4.3); LYMPH % 22.8 % (20.0-40.0); MEAN CELL VOLUME 78.4 fL (80.0-94.0); MEAN CORPUSCULAR HEMOGLOBIN 25.6 pg (27.0-31.0); MEAN CORPUSCULAR HGB CONC 32.7 g/dL (33.0-37.0); MEAN PLATELET VOLUME 7.5 fL (7.2-11.7); MONO # 0.7 K/uL (0.0-0.8); MONO % 7.9 % (0.0-10.0); RED CELL DISTRIBUTION WIDTH 15.8 % (11.5-14.5); WHITE BLOOD COUNT 9.3 K/uL (4.8-10.8)
[2017-03-28] MEDS ORDERED: Sodium Chloride 0.9% 1,000 ML ONE (23:03)
[2017-03-28 23:06] LABS: INR 1.2; POTASSIUM 4.6 mmol/L (3.6-5.2)
[2017-03-28 23:08] LABS: ALB/GLOB RATIO 1.1 (1.0-2.1); BILIRUBIN,TOTAL 0.4 mg/dL (0.2-1.3); TOTAL PROTEIN 7.4 g/dL (6.3-8.3)
[2017-03-28 23:09] LABS: CALCIUM 8.7 mg/dl (8.6-10.4)
[2017-03-28] MEDS ORDERED: ALBUTEROL SULFATE 0.09 MG IH PRN (23:46)
[2017-03-28] MEDS ORDERED: Aluminum Hydroxide/Magnesium Hydroxide Susp (30 mL) PO PRN (23:46)
[2017-03-29] MEDS ORDERED: Sodium Chloride 0.45% 1,000 ML IV ONE (00:04)
[2017-03-29] MEDS: Sodium Chloride 0.45% 1,000 ML IV SCH ×3 (00:05→15:28)
[2017-03-29 00:21] LABS: RBC URINE < 1 /hpf (0-3); URINE BILIRUBIN NEGATIVE (NEGATIVE); URINE BLOOD NEGATIVE (NEGATIVE); URINE COLOR Yellow (YELLOW); URINE GLUCOSE (UA) NORMAL (Normal); URINE HYALINE CAST >20 /lpf (0-2); URINE KETONE NEGATIVE (NEGATIVE); URINE LEUKOCYTE ESTERASE NEG Leu/uL (Negative); URINE PROTEIN NEGATIVE (NEGATIVE); URINE UROBILINOGEN NORMAL mg/dL (0.2-1.0); WBC URINE 1 /hpf (0-5)
[2017-03-29 04:29] LABS: BASO % 0.6 % (0.0-2.0); EOS # 0.1 K/uL (0.0-0.7); EOS % 1.4 % (0.0-4.0); HEMATOCRIT 24.4 % (35.0-51.0); LYMPH # 1.9 K/uL (1.0-4.3); LYMPH % 31.2 % (20.0-40.0); MEAN CELL VOLUME 78.2 fL (80.0-94.0); MEAN CORPUSCULAR HEMOGLOBIN 25.8 pg (27.0-31.0); MEAN CORPUSCULAR HGB CONC 32.9 g/dL (33.0-37.0); MEAN PLATELET VOLUME 7.4 fL (7.2-11.7); MONO # 0.5 K/uL (0.0-0.8); MONO % 8.8 % (0.0-10.0); RED CELL DISTRIBUTION WIDTH 15.6 % (11.5-14.5)
[2017-03-29 04:30] LABS: ALB/GLOB RATIO 1.1 (1.0-2.1); BILIRUBIN,TOTAL 0.3 mg/dL (0.2-1.3); CALCIUM 8.5 mg/dl (8.6-10.4); POTASSIUM 4.7 mmol/L (3.6-5.2); TOTAL PROTEIN 6.5 g/dL (6.3-8.3)
[2017-03-29 04:59] LABS: THYROID STIMULATING HORMONE 0.49 mIU/L (0.46-4.68)
[2017-03-29] MEDS ORDERED: SUCRALFATE 1 GM PO SCH (07:30)
--- NOTE | 2017-03-29 08:31 | RAD ---
PROCEDURE: Radiographs of the chest and abdomen (obstructive series) HISTORY: n/v COMPARISON: Comparison is made to 02/24/2017 TECHNIQUE: AP radiograph of the chest, with upright and supine radiographs of the abdomen. FINDINGS: CHEST: Lungs: No evidence of new infiltrate or consolidation in the lungs. Hyperinflation of the lungs is again noted. Cardiovascular: Normal size heart. No pulmonary vascular congestion. Pleura: No pleural fluid. No pneumothorax. Other findings: None. ABDOMEN AND PELVIS: Bowel: Mild constipation. Otherwise unremarkable bowel gas pattern. No evidence of mechanical obstruction. Free air: None. Bones: Advanced degenerative changes at the spine Other findings: Surgical clips at the right upper abdomen suggestive of prior cholecystectomy. IMPRESSION: Mild constipation. Otherwise unremarkable radiographs of chest and abdomen. No evidence of mechanical bowel obstruction.
[2017-03-29 09:03] VITALS: RESP 20
[2017-03-29] MEDS ORDERED: NAPROXEN PO SCH (10:00)
[2017-03-29] MEDS ORDERED: LISINOPRIL 5 MG PO SCH (10:00)
[2017-03-29] MEDS ORDERED: Home Med 1 UNIT (Aspirin [Aspirin] 81 MG) PO SCH (10:00)
[2017-03-29] MEDS: Naproxen 275 mg Tab PO SCH ×2 (11:16→17:38)
[2017-03-29] MEDS ORDERED: ROSUVASTATIN CALCIUM PO SCH (22:00)
[2017-03-29] MEDS ORDERED: Rosuvastatin Calcium 2.5 mg Tab PO SCH (22:00)
[2017-03-30] MEDS: Sodium Chloride 0.45% 1,000 ML IV SCH ×3 (02:07→15:59)
[2017-03-30 08:54] LABS: BASO % 0.7 % (0.0-2.0); EOS # 0.2 K/uL (0.0-0.7); EOS % 3.8 % (0.0-4.0); HEMATOCRIT 27.3 % (35.0-51.0); LYMPH # 1.7 K/uL (1.0-4.3); LYMPH % 36.1 % (20.0-40.0); MEAN CELL VOLUME 78.7 fL (80.0-94.0); MEAN CORPUSCULAR HEMOGLOBIN 25.9 pg (27.0-31.0); MEAN CORPUSCULAR HGB CONC 32.9 g/dL (33.0-37.0); MEAN PLATELET VOLUME 7.4 fL (7.2-11.7); MONO # 0.5 K/uL (0.0-0.8); MONO % 10.6 % (0.0-10.0); RED CELL DISTRIBUTION WIDTH 15.3 % (11.5-14.5); WHITE BLOOD COUNT 4.7 K/uL (4.8-10.8)
[2017-03-30 09:00] LABS: CHLORIDE 105 mmol/L (98-107); SODIUM 137 mmol/L (132-148)
[2017-03-30 09:01] LABS: POTASSIUM 4.3 mmol/L (3.6-5.2)
[2017-03-30 09:03] LABS: ALB/GLOB RATIO 1.1 (1.0-2.1); ALKALINE PHOSPHATASE 68 U/L (38-126); ALT/SGPT 19 U/L (21-72); AST/SGOT 17 U/L (17-59); BILIRUBIN,TOTAL 0.4 mg/dL (0.2-1.3); BLOOD UREA NITROGEN 21 mg/dL (9-20); CARBON DIOXIDE 22 mmol/L (22-30); GFR AFRICAN-AMERICAN > 60; GLUCOSE,RANDOM 93 mg/dL (75-110); TOTAL PROTEIN 7.2 g/dL (6.3-8.3)
[2017-03-30 09:04] LABS: CALCIUM 8.6 mg/dl (8.6-10.4)
[2017-03-30] MEDS: Naproxen 275 mg Tab PO SCH ×2 (09:23→17:32)
--- NOTE | 2017-03-30 12:09 | CP.PCM.CON ---
<Maday Gutierrez - Last Filed: 03/30/17 12:10> History of Present Illness - History of Present Illness History of Present Illness: PGY4 Initial GI Note Celio Whitaker is a 81M w. hx of who presented with abd pain from the [place]. As per pt, the pain started 6months ago and located RUQ and right lower ribs. Pt states that the pain is intermittent. He believes that certain foods sometimes worsen his pain but is not certain. Denies any alleviating factors. Pt states that his pain has improved since admission. He currently denies any nausea, vomiting or diarrhea. He denies any melena, BRBPR, hematachezia. Pt had a upper GI series which revealed no sig obstruction. Pt denies any previous colonoscopy and endoscopy. PMH: Anxiety, Asthma, HTN, Hyperlipidemia Surgical History: Cholecystectomy Family History: denies Endoscopy hx: Pt denies any previous episodes ROS: 12-point ROS conducted, neg other than above Past Patient History - Past Medical History & Family History Past Medical History?: Yes - Past Social History Smoking Status: Never Smoked - CARDIAC Hx Hypercholesterolemia: Yes Hx Hypertension: Yes - PULMONARY Hx Asthma: Yes - NEUROLOGICAL Hx Neurological Disorder: No - HEENT Hx HEENT Problems: No - RENAL Hx Chronic Kidney Disease: No - ENDOCRINE/METABOLIC Hx Endocrine Disorders: No - HEMATOLOGICAL/ONCOLOGICAL Hx Blood Disorders: No - INTEGUMENTARY Hx Dermatological Problems: No Hx Cellulitis: Yes Other/Comment: cellulitis of the face - MUSCULOSKELETAL/RHEUMATOLOGICAL Hx Falls: Yes - GASTROINTESTINAL Hx Gastrointestinal Disorders: No - GENITOURINARY/GYNECOLOGICAL Hx Genitourinary Disorders: No - PSYCHIATRIC Hx Substance Use: No - SURGICAL HISTORY Hx Cholecystectomy: Yes - ANESTHESIA Hx Anesthesia: Yes Hx Anesthesia Reactions: No Hx Malignant Hyperthermia: No Meds Allergies/Adverse Reactions: Allergies Allergy/AdvReac Type Severity Reaction Status Date / Time No Known Allergies Allergy Verified 02/24/17 14:00 - Medications Medications: Current Medications Al Hydrox/Mg Hydrox/Simethicone (Maalox 30 Ml) 30 ml PO Q12 PRN PRN Reason: Heartburn Last Admin: 03/29/17 11:15 Dose: 30 ml Aspirin (Ecotrin) 81 mg PO DAILY [facility] Last Admin: 03/30/17 11:34 Dose: 81 mg Dicyclomine HCl (Bentyl) 10 mg PO BID [facility] Last Admin: 03/30/17 09:24 Dose: 10 mg Home Med (Albuterol Sulfate [Ventolin Hfa]) 0.09 mg IH PRN PRN PRN Reason: Wheezing Home Med (Rosuvastatin Calcium 2.5) 0.5 mg PO [facility] Sodium Chloride (Sodium Chloride 0.45%) 1,000 mls @ 80 mls/hr IV .[id number] [facility] Last Admin: 03/30/17 02:47 Dose: Not Given Lisinopril (Zestril) 5 mg PO DAILY [facility] Last Admin: 03/30/17 11:34 Dose: 5 mg Naproxen (Anaprox) 275 mg PO BID [facility] Last Admin: 03/30/17 09:23 Dose: 275 mg Nebivolol (Bystolic) 5 mg PO DAILY [facility] Last Admin: 03/30/17 09:24 Dose: 5 mg Pantoprazole Sodium (Protonix Inj) 40 mg IVP DAILY [facility] Last Admin: 03/30/17 09:23 Dose: 40 mg Sertraline HCl (Zoloft) 25 mg PO DAILY [facility] Last Admin: 03/30/17 09:23 Dose: 25 mg Sucralfate (Carafate Tab) 1 gm PO ACTID [facility] Last Admin: 03/30/17 11:34 Dose: 1 gm Trazodone HCl (Desyrel) 50 mg PO HS [facility] Last Admin: 03/29/17 21:33 Dose: 50 mg Physical Exam - Constitutional Appears: Well, No Acute Distress - Head Exam Head Exam: ATRAUMATIC, NORMOCEPHALIC - Eye Exam Eye Exam: Normal appearance. absent: Scleral icterus - ENT Exam ENT Exam: Mucous Membranes Moist - Respiratory Exam Respiratory Exam: Clear to Auscultation Bilateral, NORMAL BREATHING PATTERN. absent: Rales, Rhonchi, Wheezes, Respiratory Distress - Cardiovascular Exam Cardiovascular Exam: REGULAR RHYTHM, RRR, +S1, +S2 - GI/Abdominal Exam GI & Abdominal Exam: Normal Bowel Sounds, Soft. absent: Distended, Firm, Guarding, Organomegaly, Rebound, Rigid - Extremities Exam Extremities exam: Negative for: pedal edema - Neurological Exam Neurological exam: Alert, Oriented x3 - Psychiatric Exam Psychiatric exam: Normal Affect, Normal Mood - Skin Skin Exam: Dry, Intact, Normal Color, Warm Results - Vital Signs Recent Vital Signs: Last Vital Signs Temp 98.3 F 03/30/17 08:57 Pulse 66 03/30/17 08:57 Resp 20 03/30/17 08:57 BP 130/62 03/30/17 08:57 Pulse Ox 98 03/30/17 08:57 - Labs Result Diagrams: 03/30/17 08:36 03/30/17 08:36 Labs: Laboratory Results - last 24 hr 03/30/17 03/30/17 08:36 08:36 WBC 4.7 L RBC 3.47 L Hgb 9.0 L Hct 27.3 L MCV 78.7 L MCH 25.9 L MCHC 32.9 L RDW 15.3 H Plt Count 311 MPV 7.4 Neut % (Auto) 48.8 L Lymph % (Auto) 36.1 Allen % (Auto) 10.6 H Eos % (Auto) 3.8 Baso % (Auto) 0.7 Neut # 2.3 Lymph # 1.7 Allen # 0.5 Eos # 0.2 Baso # 0.0 Sodium 137 Potassium 4.3 Chloride 105 Carbon Dioxide 22 Anion Gap 14 BUN 21 H Creatinine 1.1 Est GFR ( Amer) > 60 Est GFR (Non-Af Amer) > 60 Random Glucose 93 Calcium 8.6 Total Bilirubin 0.4 AST 17 D ALT 19 L Alkaline Phosphatase 68 Total Protein 7.2 Albumin 3.8 Globulin 3.4 Albumin/Globulin Ratio 1.1 Assessment & Plan - Assessment and Plan (Free Text) Assessment: Celio Whitaker is a 81M w/ hx of HTN, HL, Asthma who presents with abd pain. Etiology of the pain is unknown though it is likely 2/ constipation. r/o diverticulitis, malign, colitis Abd pain likely 2/2 constipation Acute on chronic abd pain hx of constipation Plan: -start miralax daily -start dulcolax -start senna -continue diet as tolerated -CT abd/pelv w/ IV and PO constrast -pain management as per primary team D/W Dr. White <Demar White - Last Filed: 03/30/17 15:06> Meds - Medications Medications: Current Medications Al Hydrox/Mg Hydrox/Simethicone (Maalox 30 Ml) 30 ml PO Q12 PRN PRN Reason: Heartburn Last Admin: 03/29/17 11:15 Dose: 30 ml Aspirin (Ecotrin) 81 mg PO DAILY [facility] Last Admin: 03/30/17 11:34 Dose: 81 mg Dicyclomine HCl (Bentyl) 10 mg PO BID [facility] Last Admin: 03/30/17 09:24 Dose: 10 mg Home Med (Albuterol Sulfate [Ventolin Hfa]) 0.09 mg IH PRN PRN PRN Reason: Wheezing Home Med (Rosuvastatin Calcium 2.5) 0.5 mg PO HS [facility] Sodium Chloride (Sodium Chloride 0.45%) 1,000 mls @ 80 mls/hr IV .[id number] [facility] Last Admin: 03/30/17 02:47 Dose: Not Given Lisinopril (Zestril) 5 mg PO DAILY [facility] Last Admin: 03/30/17 11:34 Dose: 5 mg Naproxen (Anaprox) 275 mg PO BID [facility] Last Admin: 03/30/17 09:23 Dose: 275 mg Nebivolol (Bystolic) 5 mg PO DAILY [facility] Last Admin: 03/30/17 09:24 Dose: 5 mg Pantoprazole Sodium (Protonix Inj) 40 mg IVP DAILY [facility] Last Admin: 03/30/17 09:23 Dose: 40 mg Polyethylene Glycol (Miralax) 17 gm PO DAILY [facility] Last Admin: 03/30/17 13:17 Dose: 17 gm Sennosides (Senokot Tab) 8.6 mg PO DAILY [facility] Last Admin: 03/30/17 13:17 Dose: 8.6 mg Sertraline HCl (Zoloft) 25 mg PO DAILY [facility] Last Admin: 03/30/17 09:23 Dose: 25 mg Sucralfate (Carafate Tab) 1 gm PO ACTID [facility] Last Admin: 03/30/17 11:34 Dose: 1 gm Trazodone HCl (Desyrel) 50 mg PO HS [facility] Last Admin: 03/29/17 21:33 Dose: 50 mg Results - Vital Signs Recent Vital Signs: Last Vital Signs Temp 98.3 F 03/30/17 08:57 Pulse 66 03/30/17 08:57 Resp 20 03/30/17 08:57 BP 130/62 03/30/17 08:57 Pulse Ox 98 03/30/17 08:57 - Labs Result Diagrams: 03/30/17 08:36 03/30/17 08:36 Labs: Laboratory Results - last 24 hr 03/30/17 03/30/17 08:36 08:36 WBC 4.7 L RBC 3.47 L Hgb 9.0 L Hct 27.3 L MCV 78.7 L MCH 25.9 L MCHC 32.9 L RDW 15.3 H Plt Count 311 MPV 7.4 Neut % (Auto) 48.8 L Lymph % (Auto) 36.1 Allen % (Auto) 10.6 H Eos % (Auto) 3.8 Baso % (Auto) 0.7 Neut # 2.3 Lymph # 1.7 Allen # 0.5 Eos # 0.2 Baso # 0.0 Sodium 137 Potassium 4.3 Chloride 105 Carbon Dioxide 22 Anion Gap 14 BUN 21 H Creatinine 1.1 Est GFR ( Amer) > 60 Est GFR (Non-Af Amer) > 60 Random Glucose 93 Calcium 8.6 Total Bilirubin 0.4 AST 17 D ALT 19 L Alkaline Phosphatase 68 Total Protein 7.2 Albumin 3.8 Globulin 3.4 Albumin/Globulin Ratio 1.1 Attending/Attestation - Attestation I have personally seen and examined this patient.: Yes I have fully participated in the care of the patient.: Yes I have reviewed all pertinent clinical information: Yes Notes (Text): 03/30/17 15:05 81 year old male with h/o HTN, HLD, Asthma admitted with abdominal pain. 1. Abdominal pain 2. Constipation Plan: -patient is a very poor historian -unclear history -complains of non-specfici intermittent abdominal pain -x ray abdomen shows evidence of constipation -recommend CT a/p as above for futher eval -start bowel regimen
[2017-03-30] MEDS ORDERED: Iodixanol 320 MG/ML 200 ML BOTTLE IV ONE (12:37)
[2017-03-30] MEDS ORDERED: Bisacodyl 5mg EC Tab PO ONE (13:00)
[2017-03-30] MEDS: POLYETHYLENE GLYCOL 3350 17 GM/Dose PACKET PO SCH (13:17)
[2017-03-30] MEDS ORDERED: Iohexol 240 (50 ml) PO ONE (14:00)
--- NOTE | 2017-03-30 17:44 | CT ---
PROCEDURE: CT Abdomen and Pelvis with contrast HISTORY: abd pain COMPARISON: Comparison is made to the previous study dated 11/03/2012 TECHNIQUE: Contrast dose: 100 mL Visipaque 320. Axial and reformatted coronal and sagittal CT images of the abdomen and pelvis were obtained after IV and oral contrast administration. Radiation dose: Total exam DLP = 338.9 mGy-cm. This CT exam was performed using one or more of the following dose reduction techniques: Automated exposure control, adjustment of the mA and/or kV according to patient size, and/or use of iterative reconstruction technique. FINDINGS: LOWER THORAX: There is a moderate to large hiatus hernia seen new compared to the previous exam. LIVER: Heterogeneous enhancement of the liver is noted. There is mild intrahepatic biliary ductal dilatation. GALLBLADDER AND BILE DUCTS: Status post cholecystectomy. Moderately dilated common bile duct is again noted measures up to 20 millimeter in the transverse diameter. PANCREAS: The pancreas is small in size. Jdgdwt-yn-wvfirtfuga dilated main pancreatic duct. No definite evidence of enhancing mass lesion at the pancreas. SPLEEN: Unremarkable. ADRENALS: Unremarkable. No mass. KIDNEYS AND URETERS: The kidneys enhance symmetrically. There is cyst at the midpole left kidney measures 3.8 x 2.5 centimeter. Mild bilateral hydronephrosis seen without evidence of obstructing stone. VASCULATURE: Unremarkable. No aortic aneurysm. BOWEL: Mild constipation is noted. Scattered colonic diverticulosis are seen without evidence of diverticulitis. No evidence of high-grade bowel obstruction or pneumatosis. APPENDIX: No evidence of appendicitis. PERITONEUM: Unremarkable. No free fluid. No free air. LYMPH NODES: Unremarkable. No enlarged lymph nodes. BLADDER: Mild circumferential urinary bladder wall thickening. REPRODUCTIVE: The prostate is moderately to markedly enlarged. BONES: Moderate compression deformity at L1-L3 and L4 noted. Diffuse osteopenia is also noted. OTHER FINDINGS: None. IMPRESSION: Large hiatus hernia. Rbjn-zx-lvoxzade intrahepatic and extrahepatic biliary ductal dilatation. Small size pancreas. Bfuweu-fz-fdugfbemiy dilated main pancreatic duct. Colonic diverticulosis without definite evidence of diverticulitis. Moderately to markedly enlarged prostate. Distended urinary bladder demonstrates mild wall thickening. Mild bilateral hydronephrosis without evidence of obstructing stone. Worsening compression deformities at the lower spine since the previous exam.
[2017-03-31] MEDS: Sodium Chloride 0.45% 1,000 ML IV SCH ×3 (06:22→16:50)
[2017-03-31] MEDS: Naproxen 275 mg Tab PO SCH ×2 (10:01→18:14)
[2017-03-31] MEDS: POLYETHYLENE GLYCOL 3350 17 GM/Dose PACKET PO SCH (10:02)
[2017-03-31 11:23] LABS: HEMATOCRIT 27.6 % (35.0-51.0); MEAN CELL VOLUME 79.1 fL (80.0-94.0); MEAN CORPUSCULAR HEMOGLOBIN 25.4 pg (27.0-31.0); MEAN CORPUSCULAR HGB CONC 32.1 g/dL (33.0-37.0); MEAN PLATELET VOLUME 7.2 fL (7.2-11.7); RED CELL DISTRIBUTION WIDTH 15.2 % (11.5-14.5)
--- NOTE | 2017-03-31 11:34 | CP.PCM.CON ---
<Yvonne Estrada - Last Filed: 03/31/17 11:34> History of Present Illness - History of Present Illness History of Present Illness: GI Fellow PGY4 Progress Note Pt seen and evaluated at bedside, pt doing well with no issues overnight. Pt reports having BM yesterday with no associated abdominal pain, nausea or vomiting. ROS: A 12pt ROS was obtained and was negative except as above. Past Patient History - Past Medical History & Family History Past Medical History?: Yes - Past Social History Smoking Status: Never Smoked - CARDIAC Hx Hypercholesterolemia: Yes Hx Hypertension: Yes - PULMONARY Hx Asthma: Yes - NEUROLOGICAL Hx Neurological Disorder: No - HEENT Hx HEENT Problems: No - RENAL Hx Chronic Kidney Disease: No - ENDOCRINE/METABOLIC Hx Endocrine Disorders: No - HEMATOLOGICAL/ONCOLOGICAL Hx Blood Disorders: No - INTEGUMENTARY Hx Dermatological Problems: No Hx Cellulitis: Yes Other/Comment: cellulitis of the face - MUSCULOSKELETAL/RHEUMATOLOGICAL Hx Falls: Yes - GASTROINTESTINAL Hx Gastrointestinal Disorders: No - GENITOURINARY/GYNECOLOGICAL Hx Genitourinary Disorders: No - PSYCHIATRIC Hx Substance Use: No - SURGICAL HISTORY Hx Cholecystectomy: Yes - ANESTHESIA Hx Anesthesia: Yes Hx Anesthesia Reactions: No Hx Malignant Hyperthermia: No Meds Allergies/Adverse Reactions: Allergies Allergy/AdvReac Type Severity Reaction Status Date / Time No Known Allergies Allergy Verified 02/24/17 14:00 - Medications Medications: Current Medications Al Hydrox/Mg Hydrox/Simethicone (Maalox 30 Ml) 30 ml PO Q12 PRN PRN Reason: Heartburn Last Admin: 03/29/17 11:15 Dose: 30 ml Aspirin (Ecotrin) 81 mg PO DAILY [facility] Last Admin: 03/30/17 11:34 Dose: 81 mg Dicyclomine HCl (Bentyl) 10 mg PO BID [facility] Last Admin: 03/31/17 10:00 Dose: 10 mg Home Med (Albuterol Sulfate [Ventolin Hfa]) 0.09 mg IH PRN PRN PRN Reason: Wheezing Home Med (Rosuvastatin Calcium 2.5) 0.5 mg PO [facility] Sodium Chloride (Sodium Chloride 0.45%) 1,000 mls @ 80 mls/hr IV .[id number] [facility] Last Admin: 03/31/17 06:29 Dose: 80 mls/hr Lisinopril (Zestril) 5 mg PO DAILY [facility] Last Admin: 03/31/17 10:00 Dose: 5 mg Naproxen (Anaprox) 275 mg PO BID [facility] Last Admin: 03/31/17 10:01 Dose: 275 mg Nebivolol (Bystolic) 5 mg PO DAILY [facility] Last Admin: 03/31/17 10:02 Dose: 5 mg Pantoprazole Sodium (Protonix Inj) 40 mg IVP DAILY [facility] Last Admin: 03/31/17 10:02 Dose: 40 mg Polyethylene Glycol (Miralax) 17 gm PO DAILY [facility] Last Admin: 03/31/17 10:02 Dose: 17 gm Sennosides (Senokot Tab) 8.6 mg PO DAILY [facility] Last Admin: 03/31/17 10:00 Dose: 8.6 mg Sertraline HCl (Zoloft) 25 mg PO DAILY [facility] Last Admin: 03/31/17 10:02 Dose: 25 mg Sucralfate (Carafate Tab) 1 gm PO ACTID [facility] Last Admin: 03/31/17 06:31 Dose: 1 gm Trazodone HCl (Desyrel) 50 mg PO HS [facility] Last Admin: 03/30/17 21:43 Dose: 50 mg Physical Exam - Constitutional Appears: No Acute Distress - Head Exam Head Exam: ATRAUMATIC, NORMAL INSPECTION, NORMOCEPHALIC - Eye Exam Eye Exam: Normal appearance, PERRL Pupil Exam: PERRL - ENT Exam ENT Exam: Mucous Membranes Moist, Normal Exam - Neck Exam Neck exam: Positive for: Normal Inspection - Respiratory Exam Respiratory Exam: Clear to Auscultation Bilateral, NORMAL BREATHING PATTERN - Cardiovascular Exam Cardiovascular Exam: RRR, +S1, +S2 - GI/Abdominal Exam GI & Abdominal Exam: Normal Bowel Sounds, Soft. absent: Distended, Firm, Guarding - Rectal Exam Rectal Exam: Deferred - Extremities Exam Extremities exam: Positive for: normal inspection - Back Exam Back exam: NORMAL INSPECTION - Neurological Exam Neurological exam: Alert, Oriented x3 - Psychiatric Exam Psychiatric exam: Normal Affect, Normal Mood - Skin Skin Exam: Dry, Intact, Normal Color, Warm Results - Vital Signs Recent Vital Signs: Last Vital Signs Temp 98.2 F 03/31/17 08:28 Pulse 69 03/31/17 08:28 Resp 20 03/31/17 08:28 BP 105/62 03/31/17 08:28 Pulse Ox 100 03/31/17 08:28 - Labs Result Diagrams: 03/31/17 11:19 03/30/17 08:36 Labs: Laboratory Results - last 24 hr 03/31/17 11:19 WBC 5.0 RBC 3.49 L Hgb 8.9 L Hct 27.6 L MCV 79.1 L MCH 25.4 L MCHC 32.1 L RDW 15.2 H Plt Count 296 MPV 7.2 Assessment & Plan - Assessment and Plan (Free Text) Assessment: This is a 81y M with pmhx of HTN, HLD, Asthma who presents with abdominal pain. 1. Constipation 2. Abdominal pain Plan: -Continue Supportive Care -Constipation improved continue bowel regimen -Abdominal pain improved likely from constipation-CTAP reviewed mild constipation -Please call with any questions or concerns <Arnaldo Echevarria MD - Last Filed: 03/31/17 15:54> Meds - Medications Medications: Current Medications Al Hydrox/Mg Hydrox/Simethicone (Maalox 30 Ml) 30 ml PO Q12 PRN PRN Reason: Heartburn Last Admin: 03/29/17 11:15 Dose: 30 ml Albuterol (Ventolin Hfa 90 Mcg/Actuation (8 G)) 1 puff IH RQ6 PRN PRN Reason: Wheezing Aspirin (Ecotrin) 81 mg PO DAILY [facility] Last Admin: 03/30/17 11:34 Dose: 81 mg Dicyclomine HCl (Bentyl) 10 mg PO BID [facility] Last Admin: 03/31/17 10:00 Dose: 10 mg Home Med (Rosuvastatin Calcium 2.5) 0.5 mg PO HS [facility] Sodium Chloride (Sodium Chloride 0.45%) 1,000 mls @ 80 mls/hr IV .[id number] [facility] Last Admin: 03/31/17 06:29 Dose: 80 mls/hr Lisinopril (Zestril) 5 mg PO DAILY [facility] Last Admin: 03/31/17 10:00 Dose: 5 mg Naproxen (Anaprox) 275 mg PO BID [facility] Last Admin: 03/31/17 10:01 Dose: 275 mg Nebivolol (Bystolic) 5 mg PO DAILY [facility] Last Admin: 03/31/17 10:02 Dose: 5 mg Pantoprazole Sodium (Protonix Inj) 40 mg IVP DAILY [facility] Last Admin: 03/31/17 10:02 Dose: 40 mg Polyethylene Glycol (Miralax) 17 gm PO DAILY [facility] Last Admin: 03/31/17 10:02 Dose: 17 gm Sennosides (Senokot Tab) 8.6 mg PO DAILY [facility] Last Admin: 03/31/17 10:00 Dose: 8.6 mg Sertraline HCl (Zoloft) 25 mg PO DAILY [facility] Last Admin: 03/31/17 10:02 Dose: 25 mg Sucralfate (Carafate Tab) 1 gm PO ACTID [facility] Last Admin: 03/31/17 12:26 Dose: Not Given Trazodone HCl (Desyrel) 50 mg PO HS [facility] Last Admin: 03/30/17 21:43 Dose: 50 mg Results - Vital Signs Recent Vital Signs: Last Vital Signs Temp 98.2 F 03/31/17 08:28 Pulse 69 03/31/17 08:28 Resp 20 03/31/17 08:28 BP 105/62 03/31/17 08:28 Pulse Ox 100 03/31/17 08:28 - Labs Result Diagrams: 03/31/17 11:19 03/31/17 11:19 Labs: Laboratory Results - last 24 hr 03/31/17 03/31/17 11:19 11:19 WBC 5.0 RBC 3.49 L Hgb 8.9 L Hct 27.6 L MCV 79.1 L MCH 25.4 L MCHC 32.1 L RDW 15.2 H Plt Count 296 MPV 7.2 Sodium 136 Potassium 5.0 Chloride 101 Carbon Dioxide 21 L Anion Gap 19 BUN 14 Creatinine 1.1 Est GFR ( Amer) > 60 Est GFR (Non-Af Amer) > 60 Random Glucose 75 Calcium 9.0 Attending/Attestation - Attestation I have personally seen and examined this patient.: Yes I have fully participated in the care of the patient.: Yes I have reviewed all pertinent clinical information: Yes Notes (Text): 03/31/17 15:53 Patient seen and examined with GI fellow on rounds. This is a 81 year old male with h/o HTN, HLD, Asthma admitted with abdominal pain in setting of constipation which has now resolved. Continue aggresive bowel regimen. Tolerating solid food diet. No GI symptoms today. Will sign off. Thank you for letting us participate in the care of your patient
[2017-03-31 11:50] LABS: BLOOD UREA NITROGEN 14 mg/dL (9-20); CARBON DIOXIDE 21 mmol/L (22-30); CHLORIDE 101 mmol/L (98-107); GFR AFRICAN-AMERICAN > 60; GLUCOSE,RANDOM 75 mg/dL (75-110); SODIUM 136 mmol/L (132-148)
[2017-03-31] MEDS ORDERED: Albuterol HFA 90 mcg/actuation (8 g) IH PRN (13:45)
--- NOTE | 2017-03-31 16:43 | NM ---
PROCEDURE: Nuclear Medicine Hepatobiliary Scan HISTORY: ruq pain; dilated CBD and pancreatic duct Relevant surgical history: Prior cholecystectomy COMPARISON: March 30, 2017. CT abdomen and pelvis. . 02/28/2017 abdominal ultrasound TECHNIQUE: 5.1 mCi of technetium 99m Mebrofenin was administered intravenously. Planar images of the abdomen were obtained at 5 min intervals to 60 mins. Delayed images were also obtained. FINDINGS: LIVER: Timely and homogenous uptake. COMMON BILE DUCT: identified at 15 mins. GALLBLADDER: Prior cholecystectomy. No evidence of accumulation of radionuclide in the gallbladder fossa SMALL BOWEL: Identified at 25 mins. IMPRESSION: Status post cholecystectomy; unremarkable Hepatobiliary Scan. Prompt accumulation of radionuclide in the hepatobiliary system, common duct and small bowel noted
[2017-03-31 23:58] VITALS: TEMP 97.5
[2017-04-01] MEDS: Sodium Chloride 0.45% 1,000 ML IV SCH (05:00)
--- NOTE | 2017-04-01 05:33 | HP ---
I was covered by another physician, but I am back. SUBJECTIVE: The patient is an 81-year-old male who presented with abdominal pain and the pain started on and off for the past few weeks and the pain located at the right upper quadrant and up to the abdomen. The patient also was complaining of nausea and vomiting. The patient was in rehab center at [facility], observed and admitted in [facility] for the above reason. However,, the patient denied any melena, but has nausea and vomiting. The patient was evaluated by the ER physician and CAT scan was done, and the patient was admitted. ALLERGIES: THE PATIENT HAS NO KNOWN ALLERGIES. PAST MEDICAL HISTORY: History of anxiety, hypertension, hyperlipidemia, and arthritis, and depression. SURGICAL HISTORY: The patient has surgical history of cholecystectomy. FAMILY HISTORY: No inherited disease. REVIEW OF SYSTEMS: The patient denies any shortness of breath. Cardiovascular, no chest pain. GI, the patient was complaining of epigastric pain and right lower quadrant pain. , nocturia. Neuro, the patient was somewhat weak. PHYSICAL EXAMINATION GENERAL: The patient is alert and awake. VITAL SIGNS: The patient had a blood pressure that was 130/62, pulse 66, respirations 20, temperature 98.3. NECK: Supple. HEART: Regular rate and rhythm. Positive murmur. LUNGS: Clear. ABDOMEN: Soft. Tenderness in the epigastric area. EXTREMITIES: There is no edema. LABORATORY DATA: The patient had a blood test done at that time, WBC was 4.7, hemoglobin 9, hematocrit 27.3, and platelets 311. Sodium 137, potassium 4.3, chloride 105, bicarb is 22, BUN 21, creatinine 1.1. GFR was greater than 60. AST 17, ALT 19, alkaline phosphatase 68, total bilirubin 7.2, albumin 3.8, globulin 3.4. ASSESSMENT AND PLAN: The patient also admitted for abdominal pain and constipation, and the patient admitted and we have a CAT scan of the abdomen ordered. The patient will have a GI consult. Leon Crowder MD
--- NOTE | 2017-04-01 06:44 | PN ---
DATE: 03/31/2017 SUBJECTIVE: The patient was seen and evaluated and examined with Nenita Douglass, . Today, the patient is complaining of slight abdominal pain. Denies any nausea or vomiting and the patient is somewhat weak. PHYSICAL EXAMINATION: VITAL SIGNS: The patient has a blood pressure of 105/62, pulse 69, respirations 20, and temperature 98.2. NECK: Supple. No JVD. LUNGS: Clear. HEART: Regular rate and rhythm, positive murmur. ABDOMEN: Soft and tenderness in the right upper quadrant. EXTREMITIES: There is no edema. LABORATORY DATA: The patient has some tests done today and yesterday WBC 5, hemoglobin 8.9, hematocrit 27.5, and platelets 296. The patient had a CAT scan that was done earlier on 03/30/2017 that has shown [id number] intrahepatic and extrahepatic biliary ductal dilatation, small size of the pancreas, [id number] dilated pancreatic duct, colonic diverticulosis without evidence of diverticulitis, [id number] enlarged prostate, distended urinary bladder demonstrate mild wall thickening and mild bilateral hydronephrosis without evidence of obstructing stone and also labs ordered for the patient and HIDA scan. The HIDA scan done today. There was no evidence of accumulation of radionuclide in the gallbladder fossa. So, the plan is that we are going to continue IV fluid for rehydration and contact the GI for further management. Leon Crowder MD
[2017-04-01] MEDS: Naproxen 275 mg Tab PO SCH (10:05)
[2017-04-01] MEDS: POLYETHYLENE GLYCOL 3350 17 GM/Dose PACKET PO SCH (10:07)
--- NOTE | 2017-04-01 11:56 | CP.PCM.PN ---
Subjective - Date & Time of Evaluation Date of Evaluation: 04/01/17 Time of Evaluation: 11:56 Objective - Vital Signs/Intake and Output Vital Signs (last 24 hours): Temp Pulse Resp BP Pulse Ox 97.5 F L 76 20 134/79 100 03/31/17 23:55 03/31/17 23:55 03/31/17 23:55 03/31/17 23:55 03/31/17 23:55 Intake and Output: 04/01/17 04/01/17 06:59 18:59 Intake Total 1640 Balance 1640 - Medications Medications: Current Medications Al Hydrox/Mg Hydrox/Simethicone (Maalox 30 Ml) 30 ml PO Q12 PRN PRN Reason: Heartburn Last Admin: 03/29/17 11:15 Dose: 30 ml Albuterol (Ventolin Hfa 90 Mcg/Actuation (8 G)) 1 puff IH RQ6 PRN PRN Reason: Wheezing Aspirin (Ecotrin) 81 mg PO DAILY [facility] Last Admin: 03/30/17 11:34 Dose: 81 mg Dicyclomine HCl (Bentyl) 10 mg PO BID [facility] Last Admin: 04/01/17 10:07 Dose: 10 mg Home Med (Rosuvastatin Calcium 2.5) 0.5 mg PO HS [facility] Sodium Chloride (Sodium Chloride 0.45%) 1,000 mls @ 80 mls/hr IV .[id number] [facility] Last Admin: 04/01/17 05:00 Dose: 80 mls/hr Lisinopril (Zestril) 5 mg PO DAILY [facility] Last Admin: 04/01/17 10:07 Dose: 5 mg Naproxen (Anaprox) 275 mg PO BID [facility] Last Admin: 04/01/17 10:05 Dose: 275 mg Nebivolol (Bystolic) 5 mg PO DAILY [facility] Last Admin: 04/01/17 10:06 Dose: 5 mg Pantoprazole Sodium (Protonix Inj) 40 mg IVP DAILY [facility] Last Admin: 04/01/17 10:05 Dose: 40 mg Polyethylene Glycol (Miralax) 17 gm PO DAILY [facility] Last Admin: 04/01/17 10:07 Dose: 17 gm Sennosides (Senokot Tab) 8.6 mg PO DAILY [facility] Last Admin: 04/01/17 10:06 Dose: 8.6 mg Sertraline HCl (Zoloft) 25 mg PO DAILY [facility] Last Admin: 04/01/17 10:07 Dose: 25 mg Sucralfate (Carafate Tab) 1 gm PO ACTID [facility] Last Admin: 04/01/17 06:42 Dose: 1 gm Trazodone HCl (Desyrel) 50 mg PO HS [facility] Last Admin: 03/31/17 21:40 Dose: 50 mg - Labs Labs: 03/31/17 11:19 03/31/17 11:19 PT 12.9 SECONDS (9.7-12.2) H 03/28/17 22:43 INR 1.2 03/28/17 22:43 APTT 34 SECONDS (21-34) 03/28/17 22:43
[2017-04-01 14:21] VITALS: BP 155/69; PULSE 87; O2SAT 99
[2017-04-01] MEDS ORDERED: Rosuvastatin Calcium 2.5 mg Tab PO SCH (22:00)
--- NOTE | 2017-04-02 04:15 | DS ---
The patient is an 81 years old male with history of arthritis, hypertension, CAD, and the patient came to the emergency room because the patient was complaining of abdominal pain and also the patient was vomiting. The patient was in the rehab and when he was brought into the emergency room. The patient was evaluated in the emergency room and admitted and the patient had a CAT scan of the abdomen that reveal that there is moderately dilated common bile duct and also the pancreas is small in size where there is a mild to moderate dilated main pancreatic duct. The patient had a GI consult with Dr. Mcintosh and the patient also had HIDA scan that showed no cholecystitis. Previously, the patient was doing well and his amylase and lipase were negative that fairly show any pancreatitis. The patient is doing well and wanted to go home instead of go back to the rehab, so we discussed the case with the Nenita Douglass, the nurse practitioner and we are planning to send the patient to the rehab other than to home, and the patient will have home physical therapy and the patient will come to see me in the office within 1 week. Leon Crowder MD
--- NOTE | 2017-04-02 08:46 | PN ---
DATE: SUBJECTIVE: The patient was seen earlier this morning. The patient was pleasant and sitting on the bed. Denies any shortness of breath. No chest pain. No palpitation. No dizziness. Denies any abdominal pain and no dysuria. PHYSICAL EXAMINATION: VITAL SIGNS: The patient had a blood pressure of 165/69, pulse 67, respirations was 20, oxygen saturation 99%. NECK: Supple. No JVD. LUNGS: Clear. HEART: Regular rate and rhythm. ABDOMEN: Soft. Positive bowel sounds, nontender. No palpable mass. EXTREMITIES: There is no edema. LABORATORY DATA: The patient's blood work showed that blood work was done yesterday, WBC was 5, hemoglobin 8.9, hematocrit 27.6 and platelets 296. PLAN: The plan is that the patient is doing well now. The patient wants to go home and does not want to go back to the rehab. So we are going to consider discharging this patient home. We will see the patient in the office within one week. Leon Crowder MD
== END 2017-04-01 14:40 | disposition home or self-care (01) | DRG 446 ==
LOC: C.ER 22:04 → C.9E 23:44 → C.5S 03-29 07:04 → C.3T 03-29 07:56
PROVIDERS: ADMIT Specialist; ATTEND Specialist
DX: K83.8 Other specified diseases of biliary tract (principal); E86.0 Dehydration; K86.89 Other specified diseases of pancreas; K59.00 Constipation, unspecified; F41.9 Anxiety disorder, unspecified; I10 Essential (primary) hypertension; F32.9 Major depressive disorder, single episode, unspecified; M19.90 Unspecified osteoarthritis, unspecified site; E78.00 Pure hypercholesterolemia, unspecified; Z90.49 Acquired absence of other specified parts of digestive tract; I25.10 Atherosclerotic heart disease of native coronary artery without angina pectoris

== ENCOUNTER 2017-06-19 13:08 | Inpatient (IN) | payer MEDICARE, OTHER ==
[2017-06-19] MEDS ORDERED: Albuterol-Ipratrop 3 mg / 0.5 (3 ml) UD INH STA (13:25)
--- NOTE | 2017-06-19 13:31 | C.PDOC ---
History Of Present Illness Patient is a 82 y/o M wiht hx of htn, cad, arthritis, presenting with generalized fatigue, myalgias and decreased appetite. He is also reporting intermittent shortness of breath. He reports that he ran out of his medication 2 weeks ago. Denies fever, chills, cough, uri complaints, chest pain, abdominal pain, nausea/vomiting, diarrhea/constipation or dysuria. PMD: Dr. Crowder Chart review shows admission on 04/01/17 for anemia, dehydration, vomiting and frequent falls. Time Seen by Provider: 06/19/17 13:10 Chief Complaint (Nursing): Shortness Of Breath Past Medical History Vital Signs: Last Vital Signs Temp 98.3 F 06/19/17 15:32 Pulse 94 H 06/19/17 15:32 Resp 23 06/19/17 15:32 BP 129/86 06/19/17 15:32 Pulse Ox 98 06/19/17 15:32 - Medical History PMH: Anxiety, Arthritis (R KN), Asthma, Benign Prostatic Hyperplasia, COPD, Depression, HTN, Hypercholesterolemia, Hyperlipidemia Denies: Chronic Kidney Disease Surgical History: Cholecystectomy Family History: States: Unknown Family Hx - Social History Hx Tobacco Use: No Hx Alcohol Use: No Hx Substance Use: No - Immunization History Hx Tetanus Toxoid Vaccination: No Hx Influenza Vaccination: Yes Hx Pneumococcal Vaccination: Yes Review Of Systems Constitutional: Positive for: Weakness (generalized fatigue). Negative for: Fever, Chills Cardiovascular: Negative for: Chest Pain, Palpitations, Orthopnea, Edema, Light Headedness Respiratory: Positive for: Shortness of Breath, SOB with Excertion. Negative for: Cough, Pleuritic Pain, Wheezing Gastrointestinal: Negative for: Nausea, Vomiting, Abdominal Pain, Constipation Genitourinary: Negative for: Dysuria Musculoskeletal: Positive for: Other (generalized myalgias) Neurological: Negative for: Weakness (no focal), Numbness, Incoordination, Change in Speech, Confusion, Seizures, Altered Mental Status, Headache, Dizziness Physical Exam - Physical Exam Appears: Well Skin: Normal Color, Warm, Dry Head: Atraumatic, Normacephalic Eye(s): bilateral: Normal Inspection, PERRL, EOMI Oral Mucosa: Dry, Other (pale) Neck: Supple Chest: Symmetrical Cardiovascular: Other (tachycardic) Respiratory: No Rales, No Rhonchi, Wheezing Gastrointestinal/Abdominal: Soft, No Tenderness, No Mass, No Distention Extremity: Normal ROM Neurological/Psych: Oriented x3, Normal Speech, Normal Cranial Nerves Gait: Steady ED Course And Treatment - Laboratory Results Result Diagrams: 06/19/17 14:01 06/19/17 14:01 Medical Decision Making Medical Decision Making: Patient presenting with generalized fatigue and sob. --duonebs --steroids --ekg --labs --cxray EKG shows sinus tachycardia at 101bpm with pacs. No acute ST changes. 2:25PM Cxray shows findings consistent with COPD. Patient anemic with elevated bun. Will transfer to observation med/sx for dehydration requiring IVF and copd requiring nebs and further monitoring. Disposition - Disposition Disposition: HOSPITALIZED Disposition Time: 15:21 Condition: FAIR - Clinical Impression Clinical Impression: COPD (chronic obstructive pulmonary disease), Dehydration
[2017-06-19] MEDS ORDERED: Sodium Chloride 0.9% 500 ML IV ONE (13:37)
[2017-06-19 14:05] LABS: BASO % 0.4 % (0.0-2.0); EOS # 0.1 K/uL (0.0-0.7); EOS % 1.6 % (0.0-4.0); LYMPH % 24.8 % (20.0-40.0); MEAN CORPUSCULAR HEMOGLOBIN 20.8 pg (27.0-31.0); MEAN CORPUSCULAR HGB CONC 30.4 g/dL (33.0-37.0); MEAN PLATELET VOLUME 7.4 fL (7.2-11.7); MONO # 0.5 K/uL (0.0-0.8); MONO % 12.7 % (0.0-10.0); RED CELL DISTRIBUTION WIDTH 20.2 % (11.5-14.5); WHITE BLOOD COUNT 4.1 K/uL (4.8-10.8)
[2017-06-19 14:12] LABS: INR 1.2
[2017-06-19 14:17] LABS: ALB/GLOB RATIO 1.2 (1.0-2.1); ALKALINE PHOSPHATASE 85 U/L (38-126); ALT/SGPT 29 U/L (21-72); AST/SGOT 13 U/L (17-59); BILIRUBIN,TOTAL 0.5 mg/dL (0.2-1.3); BLOOD UREA NITROGEN 29 mg/dL (9-20); CALCIUM 8.8 mg/dl (8.6-10.4); CARBON DIOXIDE 25 mmol/L (22-30); CHLORIDE 101 mmol/L (98-107); GFR AFRICAN-AMERICAN > 60; GLUCOSE,RANDOM 96 mg/dL (75-110); MAGNESIUM 1.6 mg/dL (1.6-2.3); MEAN CELL VOLUME 68.4 fL (80.0-94.0); PHOSPHOROUS 3.3 mg/dL (2.5-4.5); POTASSIUM 4.8 mmol/L (3.6-5.2); SODIUM 136 mmol/L (132-148); TOTAL PROTEIN 7.6 g/dL (6.3-8.3)
[2017-06-19] MEDS ORDERED: Sodium Chloride 0.9% 1,000 ML ONE (14:18)
--- NOTE | 2017-06-19 14:20 | RAD ---
HISTORY: fatigue, sob COMPARISON: Chest x-ray performed 02/24/17 TECHNIQUE: Chest PA and lateral FINDINGS: LUNGS: Flattening of hemidiaphragm consistent with hyperinflation which may be seen in the setting of COPD. No focal consolidation. Please note that chest x-ray has limited sensitivity for the detection of pulmonary masses. PLEURA: No significant pleural effusion identified. No definite pneumothorax . CARDIOVASCULAR: Heart size appears within normal limits. Atherosclerotic calcifications aortic knob. OSSEOUS STRUCTURES: Degenerative changes of the spine. VISUALIZED UPPER ABDOMEN: Unremarkable. OTHER FINDINGS: None. IMPRESSION: Flattening of hemidiaphragm consistent with hyperinflation which may be seen in the setting of COPD. Correlate clinically.
[2017-06-19 14:22] LABS: VENOUS BLOOD GAS BASE EXCESS -1.7 mmol/L (0.0-2.0); VENOUS BLOOD GAS PCO2 38 mmHg (40-60); VENOUS BLOOD PH 7.39 (7.32-7.43)
[2017-06-19] MEDS ORDERED: Albuterol-Ipratrop 3 mg / 0.5 (3 ml) UD ONE (14:33)
[2017-06-19 15:41] LABS: RBC URINE 1 /hpf (0-3); URINE BILIRUBIN NEGATIVE (NEGATIVE); URINE BLOOD NEGATIVE (NEGATIVE); URINE COLOR Yellow (YELLOW); URINE GLUCOSE (UA) NORMAL (Normal); URINE KETONE NEGATIVE (NEGATIVE); URINE LEUKOCYTE ESTERASE NEG Leu/uL (Negative); URINE PROTEIN NEGATIVE (NEGATIVE); URINE UROBILINOGEN NORMAL mg/dL (0.2-1.0); WBC URINE 1 /hpf (0-5)
[2017-06-19] MEDS: Albuterol-Ipratrop 3 mg / 0.5 (3 ml) UD INH SCH (20:14)
[2017-06-19] MEDS: Sodium Chloride 0.45% 1,000 ML IV SCH (21:58)
[2017-06-19] MEDS: Rosuvastatin Calcium 2.5 mg Tab PO SCH (21:59)
[2017-06-20] MEDS: Albuterol-Ipratrop 3 mg / 0.5 (3 ml) UD INH SCH ×4 (01:26→19:41)
[2017-06-20 05:34] LABS: BLOOD UREA NITROGEN 28 mg/dL (9-20); CALCIUM 8.2 mg/dl (8.6-10.4); CARBON DIOXIDE 24 mmol/L (22-30); CHLORIDE 103 mmol/L (98-107); GFR AFRICAN-AMERICAN > 60; GLUCOSE,RANDOM 121 mg/dL (75-110); POTASSIUM 4.7 mmol/L (3.6-5.2); SODIUM 135 mmol/L (132-148)
[2017-06-20 08:15] LABS: BASO % 0.4 % (0.0-2.0); HEMATOCRIT 25.2 % (35.0-51.0); LYMPH % 23.8 % (20.0-40.0); MEAN CELL VOLUME 68.1 fL (80.0-94.0); MEAN CORPUSCULAR HEMOGLOBIN 21.1 pg (27.0-31.0); MEAN PLATELET VOLUME 7.7 fL (7.2-11.7); MONO # 0.4 K/uL (0.0-0.8); MONO % 10.2 % (0.0-10.0); NRBC % 0.2 % (0.0-2.0); RED CELL DISTRIBUTION WIDTH 19.9 % (11.5-14.5); WHITE BLOOD COUNT 4.3 K/uL (4.8-10.8)
[2017-06-20] MEDS: Sodium Chloride 0.45% 1,000 ML IV SCH ×3 (09:37→21:29)
[2017-06-20] MEDS: Enoxaparin 40 mg Syringe SC SCH (09:38)
[2017-06-20] MEDS: Pantoprazole 40 mg EC Tab PO SCH (09:39)
[2017-06-20] MEDS ORDERED: Home Med 1 UNIT (Omeprazole [Omeprazole] 20 MG) PO SCH (10:00)
--- NOTE | 2017-06-20 14:46 | HP ---
HISTORY OF PRESENT ILLNESS: This patient is an 82-year-old patient of mine for many years, but who failed to come to my office for at least two months and the patient ended up coming to the emergency room because of generalized fatigue and nausea, and loss of appetite and generalized weakness. So, the patient was complaining of some shortness of breath. The patient also claiming that he ran out of medications for at least 2 or 3 weeks, and so the patient was evaluated in the emergency room and was admitted to my service earlier. MEDICATIONS: Out of the current medication he was taking. PAST MEDICAL HISTORY: Severe depression, arthritis, CAD, BPH, COPD, hypertension, and hyperlipidemia. SURGICAL HISTORY: History of cholecystectomy. FAMILY HISTORY: No inherited disease. SOCIAL HISTORY: Denied smoking or alcohol abuse, and the patient has a son with children. REVIEW OF SYSTEMS: RESPIRATORY: Shortness of breath on exertion, . CARDIOVASCULAR: Denied any chest pian. GASTROINTESTINAL: Anorexia. GENITOURINARY: No dysuria. NEUROLOGIC: The patient feels very weak. PHYSICAL EXAMINATION: GENERAL: The patient is alert and awake, but the patient clearly has lost lot of weight, but is still alert and awake. VITAL SIGNS: Blood pressure 128/63, pulse 81, respirations 20, temperature 98. INTEGUMENTARY: Dry. HEENT: Eye is sinking and lips are dry. NECK: Supple. No JVD. LUNGS: Clear. HEART: Tachycardic at this point. ABDOMEN: Soft. Positive bowel sounds, epigastric tenderness. EXTREMITIES: There is no edema. LABORATORY DATA: Blood test done for the patient show that WBC is 4.1, hemoglobin 8.2, hematocrit 27, and platelet is 273. Chemistries, sodium 136, potassium 4.8, chloride 101, bicarbonate 25, BUN 29, creatinine 1.3, AST is 13, ALT 29, alkaline phosphatase 85, 0.5, and BNP is 175. Albumin 4.1, globulin 3.5, lipase 72. PT is 13, INR 1.2, PTT is 3.3. is within normal limits. Also, the patient had a chest x-ray. Chest x-ray showed shortening of the hemidiaphragm consistent with COPD. Heart size actually within normal limits, atherosclerotic calcification of the aortic . EKG revealed sinus tachycardia at the rate of 102, and no specific ST-T changes. IMPRESSION: The patient will be admitted with the diagnosis of; 1. Dehydration. 2. Chronic obstructive pulmonary disease. 3. Arthritis. 4. 5. Coronary artery disease. PLAN: labs are ordered, is also appreciated. Leon Crowder MD
[2017-06-20] MEDS: Rosuvastatin Calcium 2.5 mg Tab PO SCH (21:26)
[2017-06-21] MEDS: Albuterol-Ipratrop 3 mg / 0.5 (3 ml) UD INH SCH ×4 (02:05→19:48)
[2017-06-21] MEDS: Sodium Chloride 0.45% 1,000 ML IV SCH ×4 (06:36→22:07)
[2017-06-21 07:46] LABS: BASO % 0.3 % (0.0-2.0); EOS # 0.1 K/uL (0.0-0.7); EOS % 1.8 % (0.0-4.0); HEMATOCRIT 24.1 % (35.0-51.0); LYMPH # 0.8 K/uL (1.0-4.3); LYMPH % 27.2 % (20.0-40.0); MEAN CORPUSCULAR HEMOGLOBIN 21.1 pg (27.0-31.0); MEAN CORPUSCULAR HGB CONC 31.1 g/dL (33.0-37.0); MEAN PLATELET VOLUME 7.3 fL (7.2-11.7); MONO # 0.3 K/uL (0.0-0.8); MONO % 10.8 % (0.0-10.0); NRBC % 0.5 % (0.0-2.0); RED CELL DISTRIBUTION WIDTH 19.5 % (11.5-14.5); WHITE BLOOD COUNT 2.8 K/uL (4.8-10.8)
[2017-06-21 08:12] LABS: BLOOD UREA NITROGEN 25 mg/dL (9-20); CARBON DIOXIDE 21 mmol/L (22-30); CHLORIDE 107 mmol/L (98-107); GFR AFRICAN-AMERICAN > 60; GLUCOSE,RANDOM 84 mg/dL (75-110); POTASSIUM 4.2 mmol/L (3.6-5.2); SODIUM 137 mmol/L (132-148)
[2017-06-21] MEDS: Pantoprazole 40 mg EC Tab PO SCH (10:20)
[2017-06-21] MEDS: Enoxaparin 40 mg Syringe SC SCH (10:21)
[2017-06-21 12:52] LABS: IRON < 10 ug/dL (49-181)
[2017-06-21 13:25] LABS: FOLATE 13.8 ng/mL
[2017-06-21] MEDS ORDERED: Ferric Sodium Gluconat Complex 62.5 mg/5 ml Vial IVPB SCH (16:30)
[2017-06-21] MEDS: Ferric Sodium Gluconat Complex 125 MG in Sodium Chloride 0.9% 100 ML IVPB SCH (17:15)
--- NOTE | 2017-06-21 20:06 | PN ---
DATE: SUBJECTIVE: Today, patient is alert and awake and oriented, but complaining of generalized weakness. Denies any chest pain. No palpitation. Some dizziness. PHYSICAL EXAMINATION: VITAL SIGNS: The patient has a blood pressure of 95/60, pulse 88, respirations is 20, temperature is 97.9. NECK: Supple. No JVD. LUNGS: Some rhonchi noted. HEART: Regular rate and rhythm. Positive murmur. ABDOMEN: Soft, positive bowel sounds. No tenderness. EXTREMITIES: No edema. LABORATORY DATA: Showed WBC is 2.8; hemoglobin is 7.5, went down; hematocrit 24.1, and platelet is 238. Chemistry: Sodium 137, potassium 4.2, chloride 107, bicarb 31, BUN 25, creatinine 1.1, glucose is 84, calcium of 8. The iron is less than 1 and saturation is 2.71, and TIBC is 8. PLAN: We are going to give the patient some iron, and also patient will have a consult with Dr. Jackson, the coconut jelly roller. Physical therapy is . Leon Crowder MD
[2017-06-21] MEDS: Rosuvastatin Calcium 2.5 mg Tab PO SCH (22:03)
--- NOTE | 2017-06-21 23:01 | CARD ---
APPROVED REPORT EKG Measurement Heart [id number] <Conclusion> Sinus tachycardia with occasional premature ventricular complexes Possible Left atrial enlargement Borderline ECG
[2017-06-22] MEDS: Albuterol-Ipratrop 3 mg / 0.5 (3 ml) UD INH SCH ×4 (01:28→20:18)
[2017-06-22] MEDS: Sodium Chloride 0.45% 1,000 ML IV SCH ×2 (06:30→15:20)
[2017-06-22 08:19] LABS: BASO % 0.3 % (0.0-2.0); EOS # 0.1 K/uL (0.0-0.7); EOS % 2.1 % (0.0-4.0); HEMATOCRIT 25.5 % (35.0-51.0); LYMPH # 1.8 K/uL (1.0-4.3); LYMPH % 41.8 % (20.0-40.0); MEAN CELL VOLUME 67.4 fL (80.0-94.0); MEAN CORPUSCULAR HEMOGLOBIN 20.6 pg (27.0-31.0); MEAN CORPUSCULAR HGB CONC 30.6 g/dL (33.0-37.0); MEAN PLATELET VOLUME 7.5 fL (7.2-11.7); MONO # 0.5 K/uL (0.0-0.8); MONO % 11.5 % (0.0-10.0); NRBC % 0.1 % (0.0-2.0); RED CELL DISTRIBUTION WIDTH 19.4 % (11.5-14.5); WHITE BLOOD COUNT 4.4 K/uL (4.8-10.8)
[2017-06-22 08:20] LABS: RETIC% 1.6 % (0.5-1.5)
[2017-06-22 08:49] LABS: ALB/GLOB RATIO 1.3 (1.0-2.1); ALKALINE PHOSPHATASE 75 U/L (38-126); ALT/SGPT 27 U/L (21-72); AST/SGOT 17 U/L (17-59); BILIRUBIN,TOTAL 0.3 mg/dL (0.2-1.3); BLOOD UREA NITROGEN 26 mg/dL (9-20); CALCIUM 8.2 mg/dl (8.6-10.4); CARBON DIOXIDE 23 mmol/L (22-30); CHLORIDE 105 mmol/L (98-107); GFR AFRICAN-AMERICAN > 60; GLUCOSE,RANDOM 97 mg/dL (75-110); POTASSIUM 4.3 mmol/L (3.6-5.2); SODIUM 137 mmol/L (132-148); TOTAL PROTEIN 6.4 g/dL (6.3-8.3)
[2017-06-22] MEDS: Enoxaparin 40 mg Syringe SC SCH (11:25)
[2017-06-22] MEDS: Pantoprazole 40 mg EC Tab PO SCH (11:26)
[2017-06-22] MEDS: Ferric Sodium Gluconat Complex 125 MG in Sodium Chloride 0.9% 100 ML IVPB SCH (12:12)
[2017-06-22 13:04] LABS: BASO % 0.4 % (0.0-2.0); EOS # 0.1 K/uL (0.0-0.7); EOS % 1.8 % (0.0-4.0); HEMATOCRIT 25.2 % (35.0-51.0); LYMPH # 1.6 K/uL (1.0-4.3); LYMPH % 39.5 % (20.0-40.0); MEAN CORPUSCULAR HEMOGLOBIN 21.2 pg (27.0-31.0); MEAN CORPUSCULAR HGB CONC 31.1 g/dL (33.0-37.0); MEAN PLATELET VOLUME 8.1 fL (7.2-11.7); MONO # 0.4 K/uL (0.0-0.8); MONO % 10.6 % (0.0-10.0); NRBC % 0.1 % (0.0-2.0); RED CELL DISTRIBUTION WIDTH 19.2 % (11.5-14.5); WHITE BLOOD COUNT 4.1 K/uL (4.8-10.8)
--- NOTE | 2017-06-22 17:52 | CP.PCM.CON ---
History of Present Illness - History of Present Illness History of Present Illness: 82 year old male with a history of COPD, HL, HTN, admitted with fatigue, found to be anemic and leukopenic. The patient notes to progressive fatigue, associated with dyspnea with exertion. He does admit to intermittent hematochezia with bowel movements. He also reports to diminished appetite but is unsure if he is losing weight. He denies fevers, chills, and abnormal bruising. Past medical history: COPD, HL, HTN Past surgical history: Denies Family history: Denies hematologic and oncologic problems Social history: Denies tobacco, alcohol, and illicit drug use. Allergies: NKA Review of systems: All remaining review of systems including HEENT, cardiovascular, respiratory, gastrointestinal, genitourinary, musculoskeletal, dermatologic, neurologic, and psychiatric are negative unless mentioned in the HPI. Past Patient History - Infectious Disease Hx of Infectious Diseases: None - Past Medical History & Family History Past Medical History?: Yes - Past Social History Smoking Status: Never Smoked - CARDIAC Hx Hypercholesterolemia: Yes Hx Hypertension: Yes - PULMONARY Hx Chronic Obstructive Pulmonary Disease (COPD): Yes - NEUROLOGICAL Hx Neurological Disorder: No - HEENT Hx HEENT Problems: No - RENAL Hx Chronic Kidney Disease: No - ENDOCRINE/METABOLIC Hx Endocrine Disorders: No - HEMATOLOGICAL/ONCOLOGICAL Hx Blood Disorders: No - INTEGUMENTARY Hx Dermatological Problems: No Hx Cellulitis: Yes Other/Comment: cellulitis of the face - MUSCULOSKELETAL/RHEUMATOLOGICAL Hx Arthritis: Yes - GASTROINTESTINAL Hx Gastrointestinal Disorders: No - GENITOURINARY/GYNECOLOGICAL Hx Genitourinary Disorders: No - PSYCHIATRIC Hx Anxiety: Yes Hx Depression: Yes Hx Substance Use: No - SURGICAL HISTORY Hx Cholecystectomy: Yes - ANESTHESIA Hx Anesthesia: Yes Hx Anesthesia Reactions: No Hx Malignant Hyperthermia: No Has any member of the family had a problem w/ anesthesia?: No Meds Allergies/Adverse Reactions: Allergies Allergy/AdvReac Type Severity Reaction Status Date / Time No Known Allergies Allergy Verified 06/19/17 13:20 - Medications Medications: Current Medications Albuterol/Ipratropium (Duoneb 3 Mg/0.5 Mg (3 Ml) Ud) 3 ml INH RQ6 [facility] Last Admin: 06/22/17 13:34 Dose: 3 ml Cyproheptadine HCl (Periactin) 4 mg PO BID [facility] Last Admin: 06/22/17 11:27 Dose: 4 mg Enoxaparin Sodium (Lovenox) 40 mg SC DAILY [facility] Last Admin: 06/22/17 11:25 Dose: 40 mg Sodium Chloride (Sodium Chloride 0.45%) 1,000 mls @ 90 mls/hr IV .[id number] [facility] Last Admin: 06/22/17 15:20 Dose: Not Given Ferric Sodium Gluconate Complex 125 mg/ Sodium Chloride 110 mls @ 110 mls/hr IVPB DAILY [facility] Stop: 06/29/17 17:01 Last Admin: 06/22/17 12:12 Dose: 110 mls/hr Lisinopril (Zestril) 5 mg PO DAILY [facility] Last Admin: 06/22/17 11:26 Dose: 5 mg Metoprolol Tartrate (Lopressor) 25 mg PO Q12 [facility] Last Admin: 06/22/17 11:26 Dose: 25 mg Pantoprazole Sodium (Protonix Ec Tab) 40 mg PO DAILY [facility] Last Admin: 06/22/17 11:26 Dose: 40 mg Rosuvastatin Calcium (Crestor) 2.5 mg PO [facility] Last Admin: 06/21/17 22:03 Dose: 2.5 mg Sennosides (Senokot Tab) 8.6 mg PO DAILY [facility] Last Admin: 06/22/17 11:26 Dose: 8.6 mg Sertraline HCl (Zoloft) 25 mg PO DAILY [facility] Last Admin: 06/22/17 11:27 Dose: 25 mg Tamsulosin HCl (Flomax) 0.4 mg PO DAILY [facility] Last Admin: 06/22/17 11:26 Dose: 0.4 mg Trazodone HCl (Desyrel) 50 mg PO [facility] Last Admin: 06/21/17 22:03 Dose: 50 mg Physical Exam - Head Exam Head Exam: ATRAUMATIC - Eye Exam Eye Exam: Normal appearance - ENT Exam ENT Exam: Mucous Membranes Dry - Respiratory Exam Respiratory Exam: NORMAL BREATHING PATTERN - Cardiovascular Exam Cardiovascular Exam: +S1, +S2 - GI/Abdominal Exam GI & Abdominal Exam: Normal Bowel Sounds - Extremities Exam Extremities exam: Positive for: normal inspection - Psychiatric Exam Psychiatric exam: Normal Affect, Normal Mood - Skin Skin Exam: Warm Results - Vital Signs Recent Vital Signs: Last Vital Signs Temp 98.3 F 06/22/17 16:30 Pulse 84 06/22/17 16:30 Resp 20 06/22/17 16:30 BP 116/72 06/22/17 16:30 Pulse Ox 99 06/22/17 16:30 - Labs Result Diagrams: 06/22/17 08:06 06/22/17 08:06 Labs: Laboratory Results - last 24 hr 06/22/17 06/22/17 06/22/17 08:06 08:06 08:06 WBC 4.4 L D 4.1 L RBC 3.78 L 3.71 L Hgb 7.8 L 7.8 L Hct 25.5 L 25.2 L MCV 67.4 L 68.0 L MCH 20.6 L 21.2 L MCHC 30.6 L 31.1 L RDW 19.4 H 19.2 H Plt Count 278 253 MPV 7.5 8.1 Neut % (Auto) 44.3 L 47.7 L Lymph % (Auto) 41.8 H 39.5 [place] % (Auto) 11.5 H 10.6 H Eos % (Auto) 2.1 1.8 Baso % (Auto) 0.3 0.4 Neut # 1.9 1.9 Lymph # 1.8 1.6 [place] # 0.5 0.4 Eos # 0.1 0.1 Baso # 0.0 0.0 Retic Count 1.6 H Sodium 137 Potassium 4.3 Chloride 105 Carbon Dioxide 23 Anion Gap 14 BUN 26 H Creatinine 1.3 Est GFR ( Amer) > 60 Est GFR (Non-Af Amer) 53 Random Glucose 97 Calcium 8.2 L Ferritin 6.2 Total Bilirubin 0.3 AST 17 D ALT 27 Alkaline Phosphatase 75 Total Protein 6.4 Albumin 3.6 Globulin 2.8 Albumin/Globulin Ratio 1.3 HIV 1&2 Antibody Screen Blood Type Antibody Screen 06/22/17 06/22/17 08:06 08:07 WBC RBC Hgb Hct MCV MCH MCHC RDW Plt Count MPV Neut % (Auto) Lymph % (Auto) [place] % (Auto) Eos % (Auto) Baso % (Auto) Neut # Lymph # [place] # Eos # Baso # Retic Count Sodium Potassium Chloride Carbon Dioxide Anion Gap BUN Creatinine Est GFR ( Amer) Est GFR (Non-Af Amer) Random Glucose Calcium Ferritin Total Bilirubin AST ALT Alkaline Phosphatase Total Protein Albumin Globulin Albumin/Globulin Ratio HIV 1&2 Antibody Screen Negative Blood Type A POSITIVE Antibody Screen Negative Assessment & Plan (1) Anemia Assessment and Plan: work up consistent with iron deficiency; on IV iron H/H slowly improving; if hgb < 8 in AM will plan to transfuse 1 U recommend non emergent GI evaluation at some point for EGD/colonoscopy will check FOBT and CEA Status: Acute (2) Leukopenia Assessment and Plan: mild, no neutropenia Thank you for this interesting consult. Status: Acute
[2017-06-22] MEDS: Rosuvastatin Calcium 2.5 mg Tab PO SCH (23:01)
[2017-06-23 00:23] VITALS: RESP 20
[2017-06-23] MEDS: Albuterol-Ipratrop 3 mg / 0.5 (3 ml) UD INH SCH ×3 (01:18→13:37)
--- NOTE | 2017-06-23 06:45 | PN ---
DATE: SUBJECTIVE: Today, the patient is alert and awake. Denies any chest pain. No shortness of breath. No dizziness. The patient is still weak. PHYSICAL EXAMINATION: VITAL SIGNS: The patient's blood pressure is 99/62, pulse 83, respirations 20, temperature 98. NECK: Supple. No JVD. LUNGS: Clear. HEART: Regular rate and rhythm. Positive murmur, extra systole. ABDOMEN: Soft and nontender. No palpable masses. EXTREMITIES: There is some swelling of the left upper extremity. LABORATORY DATA: Labs showed that the WBC is 6.5, hemoglobin 8.2, hematocrit 24.7 and platelet 160. Chemistry showed sodium 137, potassium 3.8, chloride 98, bicarbonate 28, BUN 34, creatinine 3.1 and glucose 115. Coags showed that PT 16.7, INR 1.5. PLAN: We are going continue current medication, but we are going order a Doppler of the left upper extremities to rule out DVT and Coumadin will be ordered . Case was discussed with the nurse. Leon Crowder MD
--- NOTE | 2017-06-23 06:45 | PN ---
SUBJECTIVE: Today, patient is more alert and awake, but complaining of shortness of breath on exertion. No chest pain or palpitation. Patient is complaining of back pain and also insomnia. PHYSICAL EXAMINATION: VITAL SIGNS: Blood pressure 125/69, pulse 72, respirations 20, temperature 98.2. HEENT: Head is normocephalic, but the eye is somewhat sinking and the mucosa is less dry than yesterday. LUNGS: Clear. HEART: Regular rate and rhythm now and a positive murmur. ABDOMEN: Soft, nontender. No palpable mass. EXTREMITIES: There is no edema. NEUROLOGIC: Patient has an unsteady gait and difficulty to ambulate. LABORATORY DATA: Show that WBC 4.3, hemoglobin 7.8, hematocrit 25.2, and platelet is 246. Chemistry showed sodium 135, potassium 4.7, chloride 103, bicarb is 24, BUN 28, creatinine 1.2, calcium 8.2, glucose 121. Coagulation: PT 13, INR 1.2, PTT 33. PLAN: We are going to transfuse the patient with 1 unit and order stool for occult blood. The case was reviewed and discussed with Cailin Lew, the nurse practitioner. Leon Crowder MD
--- NOTE | 2017-06-23 06:47 | PN ---
DATE: SUBJECTIVE: Today, the patient is alert and awake, with some lower back pain. Denies any shortness of breath. No chest pain. No palpitation. PHYSICAL EXAMINATION: VITAL SIGNS: The patient has a blood pressure of 113/67, pulse is 78, respirations 18, temperature 97.7. NECK: Supple. No JVD. LUNGS: Clear. HEART: Regular rate and rhythm. Positive murmur. BACK: There is tenderness in the lower back. ABDOMEN: Soft. Positive bowel sound. EXTREMITIES: There is no edema. NEUROLOGIC: The patient has unsteady gait. LABORATORY DATA: Showing that WBC is 4.4, hemoglobin 7.8, hematocrit 25.5, and platelet is 278. Chemistry shows sodium of 137, potassium 4.3, chloride 103, bicarb is 23, BUN 26, creatinine 1.3. AST is 17, ALT is 27, and alkaline phosphatase is 75. PLAN: We are going to continue the current medication, and at this time, the patient is on IV iron, and today is the second day. Physical therapy is ordered. Leon Crowder MD
[2017-06-23 08:14] LABS: BASO % 0.4 % (0.0-2.0); EOS # 0.1 K/uL (0.0-0.7); EOS % 1.8 % (0.0-4.0); HEMATOCRIT 30.7 % (35.0-51.0); LYMPH % 41.9 % (20.0-40.0); MEAN CELL VOLUME 69.9 fL (80.0-94.0); MEAN CORPUSCULAR HGB CONC 31.4 g/dL (33.0-37.0); MEAN PLATELET VOLUME 7.4 fL (7.2-11.7); MONO # 0.4 K/uL (0.0-0.8); NRBC % 0.1 % (0.0-2.0); RED CELL DISTRIBUTION WIDTH 19.4 % (11.5-14.5); WHITE BLOOD COUNT 4.9 K/uL (4.8-10.8)
[2017-06-23 08:30] VITALS: BP 112/67; PULSE 76; TEMP 97.8; O2SAT 97
[2017-06-23 09:03] LABS: ALB/GLOB RATIO 1.3 (1.0-2.1); ALKALINE PHOSPHATASE 80 U/L (38-126); ALT/SGPT 22 U/L (21-72); AST/SGOT 16 U/L (17-59); BILIRUBIN,TOTAL 0.6 mg/dL (0.2-1.3); BLOOD UREA NITROGEN 25 mg/dL (9-20); CALCIUM 8.4 mg/dl (8.6-10.4); CARBON DIOXIDE 23 mmol/L (22-30); CHLORIDE 106 mmol/L (98-107); GFR AFRICAN-AMERICAN > 60; GLUCOSE,RANDOM 100 mg/dL (75-110); POTASSIUM 4.4 mmol/L (3.6-5.2); SODIUM 138 mmol/L (132-148); TOTAL PROTEIN 6.7 g/dL (6.3-8.3)
[2017-06-23] MEDS: Pantoprazole 40 mg EC Tab PO SCH (10:49)
[2017-06-23] MEDS: Enoxaparin 40 mg Syringe SC SCH (10:49)
[2017-06-23] MEDS ORDERED: Ferric Sodium Gluconat Complex 62.5 mg/5 ml Vial ONE (10:55)
[2017-06-23] MEDS: Ferric Sodium Gluconat Complex 125 MG in Sodium Chloride 0.9% 100 ML IVPB SCH (11:00)
--- NOTE | 2017-06-23 17:53 | CP.PCM.PN ---
Subjective - Date & Time of Evaluation Date of Evaluation: 06/23/17 Time of Evaluation: 11:00 - Subjective Subjective: Alert, awake, unsteady gait, NAD. Objective - Vital Signs/Intake and Output Vital Signs (last 24 hours): Temp Pulse Resp BP Pulse Ox 97.8 F 76 20 112/67 97 06/23/17 08:29 06/23/17 12:00 06/23/17 08:29 06/23/17 12:00 06/23/17 12:00 Intake and Output: 06/23/17 06/23/17 06:59 18:59 Intake Total 1275 590 Balance 1275 590 - Labs Labs: 06/23/17 08:05 06/23/17 08:05 PT 13.0 SECONDS (9.7-12.2) H 06/19/17 14:01 INR 1.2 06/19/17 14:01 APTT 33 SECONDS (21-34) 06/19/17 14:01 Assessment and Plan - Assessment and Plan (Free Text) Assessment: Patient is seen and examined. Denies sob or chest pains. Alert, awake, out of bed, walks with assistance. D/W DR Crowder, plan to discharge to rehab today. Patient verbalized understanding.
--- NOTE | 2017-06-24 01:14 | PN ---
SUBJECTIVE: Today, patient is alert and awake. Denies any shortness of breath, no chest pain, although patient is still weak. PHYSICAL EXAMINATION: VITAL SIGNS: The patient has blood pressure of 112/67, pulse 76, respirations 18 to 20, temperature 97.8. NECK: Supple. No JVD. LUNGS: Clear. HEART: Regular rate and rhythm. Positive murmur. ABDOMEN: Soft. Nontender. No palpable mass. EXTREMITIES: There is no edema. NEUROLOGIC: Patient has unsteady gait. LABORATORY DATA: Patient has blood work done; WBC 4.9; hemoglobin 9.7, going up from 7.8; hematocrit 30.7; and platelet 269. Chemistry shows a sodium 138, potassium 4.4, chloride 106, bicarb is 23, BUN is 25, creatinine 1.2, and glucose 100. Calcium 8.4. AST 16, ALT 22, and alkaline phosphatase is 80. PLAN: We are going to consider sending the patient to [facility] for rehab. Leon Crowder MD
--- NOTE | 2017-06-24 17:12 | DS ---
SUBJECTIVE: This patient is an 82-year-old male with history of CAD, hypertension, arthritis, depression, BPH and COPD. The patient was brought to the emergency room because the patient had generalized weakness, nausea and also loss of appetite, and also patient was found to be short of breath. Patient was admitted and we found that the patient was somewhat dehydrated with marked weight loss and also the patient was complaining of shortness of breath, insomnia and poor appetite. The patient was also found to be anemic. So,the patient had a consult with Dr. Jackson and electrophysical therapy for evaluation. Patient had received blood transfusion and also IV fluid and medications to improve appetite and insomnia. So, the patient has improved patient was sent to [facility] for rehab. So, the case was reviewed and discussed with Nenita Douglass, the nurse practitioner. Leon Crowder MD
== END 2017-06-23 16:10 | DRG 641 ==
LOC: C.ER 13:08 → C.9E 15:21 → C.3T 15:58 → OBSVTOIN 06-20 16:10
PROVIDERS: ADMIT Specialist; ATTEND Specialist
DX: E86.0 Dehydration (principal); J44.9 Chronic obstructive pulmonary disease, unspecified; D64.9 Anemia, unspecified; E61.1 Iron deficiency; E78.5 Hyperlipidemia, unspecified; G47.00 Insomnia, unspecified; I10 Essential (primary) hypertension; I25.10 Atherosclerotic heart disease of native coronary artery without angina pectoris; N40.0 Benign prostatic hyperplasia without lower urinary tract symptoms; R29.6 Repeated falls

== ENCOUNTER 2018-03-25 11:38 | Emergency (ER) | payer MEDICARE, OTHER ==
--- NOTE | 2018-03-25 12:28 | C.PDOC ---
History Of Present Illness 82 year old male presents to the ER with a complaint of abdominal pain for the past month associated with nausea. Patient states he has a Hx of similar pain in the past when he had a GI bleed. Denies fever, diarrhea, or current GI bleed. history of COPD, HL, HTN, admitted with fatigue, found to be anemic and leukopenic DUE TO IRON DEF, GI BLEED Time Seen by Provider: 03/25/18 12:26 Chief Complaint (Nursing): Abdominal Pain History Per: Patient History/Exam Limitations: no limitations Onset/Duration Of Symptoms: Days Current Symptoms Are (Timing): Still Present Recent travel outside of the [place]: No Past Medical History Reviewed: Historical Data, Nursing Documentation, Vital Signs Vital Signs: Last Vital Signs Temp 98.9 F 03/25/18 16:57 Pulse 92 H 03/25/18 16:57 Resp 20 03/25/18 16:57 BP 151/80 H 03/25/18 16:57 Pulse Ox 99 03/25/18 16:57 - Medical History PMH: Anxiety, Arthritis, Asthma, Benign Prostatic Hyperplasia, COPD, Depression , HTN, Hypercholesterolemia, Hyperlipidemia Denies: Chronic Kidney Disease Surgical History: Cholecystectomy Family History: States: Unknown Family Hx - Social History Hx Tobacco Use: No Hx Alcohol Use: No Hx Substance Use: No - Immunization History Hx Tetanus Toxoid Vaccination: No Hx Influenza Vaccination: Yes Hx Pneumococcal Vaccination: Yes Review Of Systems Constitutional: Negative for: Fever, Chills Cardiovascular: Negative for: Chest Pain, Palpitations Respiratory: Negative for: Cough, Shortness of Breath Gastrointestinal: Positive for: Nausea, Abdominal Pain. Negative for: Vomiting , Diarrhea, Other (GI bleed) Genitourinary: Negative for: Dysuria, Hematuria Skin: Negative for: Rash Neurological: Negative for: Weakness, Numbness Physical Exam - Physical Exam Appears: Non-toxic Skin: Normal Color, Warm, Dry Head: Atraumatic, Normacephalic Eye(s): bilateral: Normal Inspection Oral Mucosa: Moist Neck: Normal, Supple Chest: Symmetrical, No Tenderness Cardiovascular: Rhythm Regular Respiratory: Normal Breath Sounds, No Rales, No Rhonchi, No Wheezing Gastrointestinal/Abdominal: Soft, Tenderness (Bilateral upper quadrants), No Guarding, No Rebound Back: No CVA Tenderness Extremity: Normal ROM (x4) Neurological/Psych: Oriented x3, Normal Speech ED Course And Treatment - Laboratory Results Result Diagrams: 03/25/18 13:19 03/25/18 13:15 ECG: Interpreted By Me, Viewed By Me ECG Rhythm: Sinus Rhythm ECG Interpretation: Normal Rate From EC O2 Sat by Pulse Oximetry: 98 (Room air) Pulse Ox Interpretation: Normal - Radiology CXR: Interpreted by Me, Viewed By Me CXR Interpretation: Yes: No Acute Disease. No: Infiltrates - CT Scan/US CT abd/pel Other Rad Studies (CT/US): Read By Radiologist, Radiology Report Reviewed CT/US Interpretation: PROCEDURE: CT Abdomen and Pelvis with contrast. HISTORY : Unspecified abdominal pain. COMPARISON: 03/30/2017. CT abdomen and pelvis. TECHNIQUE: Contrast dose: 100 cc Visipaque 320. Radiation dose: Total exam DLP = 324.63 mGy-cm. This CT exam was performed using one or more of the following dose reduction techniques: Automated exposure control, adjustment of the mA and/or kV according to patient size, and/or use of iterative reconstruction technique. FINDINGS: LOWER THORAX: Stable hiatal hernia. LIVER: Hepatic steatosis. No focal masses. Stable intrahepatic and common bile duct dilatation. Common bile duct measures 0.1 mm unchanged compared to the prior study. GALLBLADDER AND BILE DUCTS: Status post cholecystectomy. No abnormality is seen in the gallbladder fossa. PANCREAS: Atrophic pancreas, dilated pancreatic duct similar to that seen previously. SPLEEN: Unremarkable. ADRENALS: Unremarkable. No mass. KIDNEYS AND URETERS: Unremarkable. No hydronephrosis. No solid mass. Incidental finding(s): Stable left renal cysts. VASCULATURE: Unremarkable. No aortic aneurysm. BOWEL: Diverticulosis without an acute inflammatory component or other associated pathologic process. Constipation without fecal impaction or obstruction. APPENDIX: No abnormalities to suggest acute appendicitis. No right lower quadrant inflammatory processes identified. PERITONEUM: Unremarkable. No free fluid. No free air. LYMPH NODES: Unremarkable. No enlarged lymph nodes. BLADDER: Unremarkable. REPRODUCTIVE: Enlarged prostate 4.5 x 6.8 cm. Stable compared to the prior study. BONES: No acute fracture. Stable lumbar compression deformities. These involve L1, L3 and L4. OTHER FINDINGS: None. IMPRESSION: No acute findings related to/accounting for the clinical presentation. Additional benign and/or incidental findings described above. No significant interval change compared to the prior examination(s). Progress - Re-Evaluation Re-evaluation Note: 03/25/18 16:38 APPEARS COMFORTABLE NAD. ABD SOFT NT ND NO R/G. DC FU PMD - Data Reviewed Data Reviewed: Lab, Diagnostic imaging, EKG, Old records Medical Decision Making Medical Decision Making: Plan: * CT abd/pel * EKG * CXR * Urinalysis * Morphine * Zofran Disposition Counseled Patient/Family Regarding: Studies Performed, Diagnosis, Need For Followup - Disposition Referrals: YOUR,PMD [Other] Disposition: HOME/ ROUTINE Disposition Time: 16:38 Condition: IMPROVED Instructions: Acute Abdomen (Belly Pain), Adult (DC) Forms: [employer] (Thai) Print Language: KOREAN - Clinical Impression Clinical Impression: Abdominal pain - Scribe Statement The provider has reviewed the documentation as recorded by the Scribkristie Akers All medical record entries made by the Scribe were at my direction and personally dictated by me. I have reviewed the chart and agree that the record accurately reflects my personal performance of the history, physical exam, medical decision making, and the department course for this patient. I have also personally directed, reviewed, and agree with the discharge instructions and disposition.
[2018-03-25 12:30] VITALS: BMI 22.6
[2018-03-25 13:31] LABS: SQUAMOUS EPITHIAL < 1 /hpf (0-5); URINE BILIRUBIN NEGATIVE (NEGATIVE); URINE BLOOD NEGATIVE (NEGATIVE); URINE CLARITY Clear (Clear); URINE COLOR Yellow (YELLOW); URINE GLUCOSE (UA) NORMAL (Normal); URINE LEUKOCYTE ESTERASE NEG Leu/uL (Negative); URINE PROTEIN NEGATIVE (NEGATIVE); URINE UROBILINOGEN NORMAL mg/dL (0.2-1.0)
--- NOTE | 2018-03-25 13:31 | RAD ---
HISTORY: abd pain COMPARISON: Chest x-ray performed 06/19/17 TECHNIQUE: Chest, one view. FINDINGS: LUNGS: Increased lucencies especially within the bilateral upper lung zamora compatible with underlying emphysema. No focal consolidation. Please note that chest x-ray has limited sensitivity for the detection of pulmonary masses. PLEURA: No significant pleural effusion identified. No definite pneumothorax . CARDIOVASCULAR: Heart size appears within normal limits. Atherosclerotic calcifications. OSSEOUS STRUCTURES: Degenerative changes of the spine. VISUALIZED UPPER ABDOMEN: Unremarkable. OTHER FINDINGS: None. IMPRESSION: Emphysematous changes.
[2018-03-25 13:32] LABS: BASO % 0.2 % (0.0-2.0); EOS % 0.4 % (0.0-4.0); HEMOGLOBIN 10.4 g/dL (12.0-18.0); MEAN CELL VOLUME 75.6 fL (80.0-94.0); MEAN CORPUSCULAR HEMOGLOBIN 24.9 pg (27.0-31.0); MEAN PLATELET VOLUME 8.1 fL (7.2-11.7); MONO # 0.5 K/uL (0.0-0.8); MONO % 10.1 % (0.0-10.0); NEUT # 3.6 K/uL (1.8-7.0); NEUT % 70.3 % (50.0-75.0); RBC 4.17 Mil/uL (4.40-5.90); RED CELL DISTRIBUTION WIDTH 16.2 % (11.5-14.5); WHITE BLOOD COUNT 5.1 K/uL (4.8-10.8)
[2018-03-25 13:43] LABS: ALBUMIN 4.2 g/dL (3.5-5.0)
[2018-03-25 13:45] LABS: ALT/SGPT 17 U/L (21-72); AST/SGOT 22 U/L (17-59); BLOOD UREA NITROGEN 26 mg/dL (9-20); CALCIUM 9.3 mg/dl (8.6-10.4); GFR NON-AFRICAN AMERICAN 58; LIPASE 88 U/L (23-300)
[2018-03-25 13:46] LABS: ALB/GLOB RATIO 1.2 (1.0-2.1)
[2018-03-25] MEDS ORDERED: Iodixanol 320 MG/ML 100 ML BOTTLE IV ONE (15:11)
[2018-03-25 15:49] VITALS: RESP 20
--- NOTE | 2018-03-25 16:16 | CT ---
Date of service: 03/25/2018 PROCEDURE: CT Abdomen and Pelvis with contrast HISTORY: Unspecified abdominal pain. COMPARISON: 03/30/2017. CT abdomen and pelvis TECHNIQUE: Contrast dose: 100 cc Visipaque 320. Radiation dose: Total exam DLP = 324.63 mGy-cm. This CT exam was performed using one or more of the following dose reduction techniques: Automated exposure control, adjustment of the mA and/or kV according to patient size, and/or use of iterative reconstruction technique. FINDINGS: LOWER THORAX: Stable hiatal hernia. LIVER: Hepatic steatosis. No focal masses. Stable intrahepatic and common bile duct dilatation. Common bile duct measures 0.1 mm unchanged compared to the prior study. GALLBLADDER AND BILE DUCTS: Status post cholecystectomy. No abnormality is seen in the gallbladder fossa. PANCREAS: Atrophic pancreas, dilated pancreatic duct similar to that seen previously. SPLEEN: Unremarkable. ADRENALS: Unremarkable. No mass. KIDNEYS AND URETERS: Unremarkable. No hydronephrosis. No solid mass. Incidental finding(s): Stable left renal cysts. VASCULATURE: Unremarkable. No aortic aneurysm. BOWEL: Diverticulosis without an acute inflammatory component or other associated pathologic process. Constipation without fecal impaction or obstruction. APPENDIX: No abnormalities to suggest acute appendicitis. No right lower quadrant inflammatory processes identified. PERITONEUM: Unremarkable. No free fluid. No free air. LYMPH NODES: Unremarkable. No enlarged lymph nodes. BLADDER: Unremarkable. REPRODUCTIVE: Enlarged prostate 4.5 x 6.8 cm. Stable compared to the prior study. BONES: No acute fracture. Stable lumbar compression deformities. These involve L1, L3 and L4. OTHER FINDINGS: None. IMPRESSION: No acute findings related to/accounting for the clinical presentation. Additional benign and/or incidental findings described above. No significant interval change compared to the prior examination(s).
[2018-03-25 16:57] VITALS: BP 151/80; PULSE 92; TEMP 98.9
[2018-03-25 18:37] VITALS: O2SAT 98
--- NOTE | 2018-03-29 08:29 | CARD ---
APPROVED REPORT Date of service: 03/25/2018 EKG Measurement Heart [id number] <Conclusion> Normal sinus rhythm Possible Left atrial enlargement Borderline ECG
== END 2018-03-25 17:46 | disposition home or self-care (01) ==
LOC: C.ER 11:38
DX: R10.10 Upper abdominal pain, unspecified (principal)
CPT/HCPCS: 71045; 74177; 80053; 81001; 83690; 85025; 93005; 96374; 96375; 99285; J2270; J2405; Q9967